=== PATIENT | female | born 1960 | race Caucasian/White ===

== ENCOUNTER 2016-11-18 07:27 | Day surgery (SDC) | payer OTHER ==
[2016-11-16 09:24] VITALS: BMI 25.4
[~2016-11-18 07:27] MED LIST: LACTATED RINGERS 1,000 ML IV SCH
[2016-11-18 07:51] VITALS: TEMP 98.9
[2016-11-18] MEDS ORDERED: LIDOCAINE 1% 20 ML VIAL (10MG/ML) FOR IV START INTRADERMA ONE (07:51)
[2016-11-18] MEDS ORDERED: PROPOFOL 10 MG/ML 20 ML VIAL IV ONE (08:03)
--- NOTE | 2016-11-18 08:25 | P.OP ---
Date of Procedure: 11/18/16 Preoperative Diagnosis: Screening for colon cancer Postoperative Diagnosis: Diverticulosis of the large intestine without perforation or bleeding. Procedure(s) Performed: Colonoscopy Anesthesia: GETA Pathology: none sent Condition: stable Disposition: PACU Description of Procedure: The patient was brought to the endoscopy suite and placed in lateral decubitus position. IV sedation was given as per anesthesia team. A timeout was performed to verify correct patient and correct procedure.Perianal examination did not reveal any external hemorrhoids but small franc-anal skin tags. Digital rectal examination was performed. A well- lubricated endoscope was passed per rectally and was gradually advanced beyond the sigmoid colon, splenic flexure, transverse colon, hepatic flexure and cecum. The ileocecal valve was visualized. Then extensive diverticulosis noted without any evidence of diverticulitis. Scope was gradually withdrawn inspecting all the mucosal surfaces. Bowel prep was fair. No other polyps or masses noted. Retroflexed in the rectum and internal hemorrhoid was noted which was not bleeding at this time. The scope was gradually withdrawn. Patient tolerated the procedure well and was taken to post anesthesia care unit in stable condition. Recommend repeat colonoscopy in 5 years Plan - Discharge Summary Discharge Medication List Acyclovir 400 mg PO BID 04/29/15 [History] Ergocalciferol [Vitamin D2] 50,000 unit PO SA 04/29/15 [History] Folic Acid 1 mg PO DAILY 04/29/15 [History] Magnesium Oxide [Mag-Ox] 400 mg PO BID 04/29/15 [History] Omeprazole [PriLOSEC] 20 mg PO AC-BID 04/29/15 [History] Sulfamethoxazole/Trimethoprim [Bactrim SS 400-80 mg] 1 each PO DAILY 04/29/15 [ History] Tacrolimus [Prograf] 1.5 mg PO BID 04/29/15 [History] Ursodiol 300 mg PO BID 04/29/15 [History] cycloSPORINE 0.05% OPHTH SOLN [Restasis] 1 applicator BOTH EYES Q12H 04/29/15 [ History] oxyCODONE HCL [Roxicodone] 5 mg PO Q4HR PRN 04/29/15 [History] predniSONE 7.5 mg PO DAILY 04/29/15 [History] rOPINIRole HCL [Requip] 0.5 mg PO HS PRN 04/29/15 [History]
[2016-11-18 08:58] VITALS: BP 102/61; PULSE 79; RESP 18
== END 2016-11-18 09:10 | disposition home or self-care (01) ==
LOC: ORWHC2ENDO 07:27
PROVIDERS: ATTEND Surgery
DX: Z12.11 Encounter for screening for malignant neoplasm of colon (principal); K57.30 Diverticulosis of large intestine without perforation or abscess without bleeding; K64.4 Residual hemorrhoidal skin tags; K21.9 Gastro-esophageal reflux disease without esophagitis; E78.5 Hyperlipidemia, unspecified; K64.8 Other hemorrhoids; Z79.899 Other long term (current) drug therapy; Z79.52 Long term (current) use of systemic steroids; Z87.891 Personal history of nicotine dependence; Z79.2 Long term (current) use of antibiotics
CPT/HCPCS: J2704; G0121

== ENCOUNTER → 2017-10-13 | Outpatient (CLI) | payer OTHER ==
--- NOTE | 2017-10-13 16:30 | BD ---
EXAMINATION TYPE: MG DEXA axial skeleton. DATE OF EXAM: 10/13/2017 COMPARISON: NONE CLINICAL HISTORY: 57-year-old female postmenopausal screening Height: 62 Weight: 146.8 FRAX RISK QUESTIONS: Alcohol (3 or more units per day): no Family History (Parent hip fracture): no Glucocorticoids (More than 3mos): yes (Ex: prednisone, prednisolone, methylprednisolone, dexamethasone, and hydrocortisone). History of Fracture in Adulthood: yes Secondary Osteoporosis: 1. Type 1 Diabetes: no 2. Hyperthyroidism: no 3. Menopause before 45: no 4. Malnutrition: no 5. Chronic liver disease: no Rheumatoid Arthritis: no Current Tobacco Use: no RISK FACTORS HISTORY OF: Family History of Osteoporosis: no Active: yes Diet low in dairy products/other sources of calcium: no Postmenopausal woman: age 51 Lost more than 2 inches in height since high school: no Frequent falls: no Adrenal Insufficiency: no MEDICATIONS: acyclovir, omeprazole Prednisone or other steroids: yes How Lon years Additional History: pt has had lymphoma EXAM MEASUREMENTS: Bone mineral densitometry was performed using the [employer] System. Bone mineral density as measured about the Lumbar spine is: ----- L1-L4(G/cm2): 1.014 T Score Values are as follows: ----- L2: -1.9 ----- L3: -1.4 ----- L4: -1.0 ----- L1-L4: -1.4 Bone mineral density baseline Bone mineral density about the R hip (g/cm2): 0.682 Bone mineral density about the L hip (g/cm2): 0.716 T Score values are as follows: -----R Neck: -2.6 -----L Neck: -2.3 -----R Total: -2.1 -----L Total: -2.1 Bone mineral density baseline IMPRESSION: Osteoporosis (T Score less than -2.5). There is increased fracture risk and therapy is usually indicated based on age. Re-Screen 1-2 years. NOTE: T-SCORE=SD OF THE YOUNG ADULT MEAN.
== END | disposition home or self-care (01) ==
LOC: RADBDWWP 14:37
PROVIDERS: ATTEND Family Medicine
DX: M81.0 Age-related osteoporosis without current pathological fracture (principal); Z78.0 Asymptomatic menopausal state
CPT/HCPCS: 77080

== ENCOUNTER → 2018-02-14 | Outpatient (CLI) | payer OTHER ==
--- NOTE | 2018-02-14 16:10 | XR ---
EXAMINATION TYPE: XR chest 2V DATE OF EXAM: 02/14/2018 COMPARISON: 10/31/2013 HISTORY: 57-year-old female wheezing, chest discomfort, shortness of breath TECHNIQUE: PA and lateral views FINDINGS: Heart normal size. Aorta within normal limits. Pulmonary vasculature within normal limits. Patchy mul tifocal opacities are present, some of which have a strandy appearance suggesting scarring. Others ar e more focal airspace opacities. Possible trace effusions. Further contrast enhanced CT evaluation re commended. IMPRESSION: Multifocal interstitial and patchy infiltrates. Interstitial pneumonitis and infection including atyp ical pneumonias are in the differential. Possible trace effusions. Further contrast enhanced CT evalu ation recommended.
== END | disposition home or self-care (01) ==
LOC: RADXRMAIN 14:44
PROVIDERS: ATTEND Family Medicine
DX: R91.8 Other nonspecific abnormal finding of lung field (principal)
CPT/HCPCS: 71046

== ENCOUNTER → 2018-03-01 | Outpatient (CLI) | payer OTHER ==
--- NOTE | 2018-03-01 08:09 | CT ---
EXAMINATION TYPE: CT chest w con DATE OF EXAM: 03/01/2018 COMPARISON: 12/06/2012 HISTORY: Ventilator associated pneumonia CT DLP: 406 mGycm Automated exposure control for dose reduction was used. CONTRAST: CT scan of the chest is performed with IV Contrast, patient injected with 100 mL of Isovue 300. FINDINGS: LUNGS: Multifocal coarse groundglass infiltrates are seen throughout both lung russo which are nonsp ecific and may reflect acute inflammatory process. No evidence for distinct pulmonary nodule or mass. No pleural effusion identified. No evidence of volume loss. MEDIASTINUM: Left paratracheal lymph nodes measure 1.1 cm and up to 8 mm. No hilar adenopathy is appr eciated. Thoracic aorta is of normal caliber. The heart is not enlarged. UPPER ABDOMEN: Partially imaged left-sided renal cystic change. OTHER: No additional significant abnormality is seen. IMPRESSION: 1. Nonspecific Multifocal coarse groundglass infiltrates suspicious for multifocal pneumonia. Correla te clinically and progress studies are recommended.
== END | disposition home or self-care (01) ==
LOC: RADCTMAIN 06:02
PROVIDERS: ATTEND Family Medicine
DX: R91.8 Other nonspecific abnormal finding of lung field (principal)
CPT/HCPCS: 82565; 84520; 71260; 36415; Q9967

== ENCOUNTER 2018-03-06 13:17 | Inpatient (IN) | payer OTHER ==
[2018-03-06] MEDS ORDERED: IPRATROPIUM-ALBUTEROL 3 ML NEB INHALATION STA (14:07)
[2018-03-06 14:26] LABS: Basophils % (A) 0 %; Eosinophils # (A) 0.3 k/uL (0-0.7); Eosinophils % (A) 2 %; HCT 35.8 % (34.0-46.0); HGB 11.3 gm/dL (11.4-16.0); Hypochromasia Slight; Lymphocytes # (A) 3.9 k/uL (1.0-4.8); Lymphocytes % (A) 19 %; MCH 27.9 pg (25.0-35.0); MCHC 31.5 g/dL (31.0-37.0); MCV 88.7 fL (80.0-100.0); Monocytes # (A) 1.1 k/uL (0-1.0); Monocytes % (A) 6 %; Neutrophils # (A) 14.8 k/uL (1.3-7.7); Neutrophils % (A) 73 %; Platelet Count 580 k/uL (150-450); RBC 4.03 m/uL (3.80-5.40); RDW 14.6 % (11.5-15.5); WBC 20.4 k/uL (3.8-10.6)
[2018-03-06 14:33] LABS: Partial Thromboplastin Time 22.2 sec (22.0-30.0); Prothrombin Time 9.8 sec (9.0-12.0)
--- NOTE | 2018-03-06 14:41 | XR ---
EXAMINATION TYPE: XR chest 2V DATE OF EXAM: 03/06/2018 COMPARISON: 02/14/2018 HISTORY: 57-year-old male difficulty breathing, cough and shortness of breath TECHNIQUE: PA and lateral views FINDINGS: Heart normal size. Aorta within normal limits. Increasing multifocal patchy airspace opacities. No si gnificant pleural effusion. IMPRESSION: Increasing multifocal patchy airspace disease. Some differential considerations include multifocal pn eumonia, interstitial pneumonitis, and hypersensitivity pneumonitis/drug reaction. Clinically correla te.
[2018-03-06 14:42] LABS: ALT 30 U/L (9-52); AST 38 U/L (14-36); Albumin 3.1 g/dL (3.5-5.0); Alkaline Phosphatase 46 U/L (38-126); Anion Gap 8 mmol/L; Blood Urea Nitrogen 17 mg/dL (7-17); Carbon Dioxide 23 mmol/L (22-30); Chloride 107 mmol/L (98-107); Glucose 105 mg/dL (74-99); Potassium 4.2 mmol/L (3.5-5.1); Sodium 138 mmol/L (137-145); Total Bilirubin 0.4 mg/dL (0.2-1.3); Total Protein 6.5 g/dL (6.3-8.2)
--- NOTE | 2018-03-06 14:58 | ED ---
SOB HPI - General Source: patient, RN notes reviewed Mode of arrival: ambulatory Limitations: no limitations <Joey Perez - Last Filed: 03/06/18 15:06> <Carrie Pope - Last Filed: 03/13/18 22:18> - General Chief Complaint: Shortness of Breath Stated Complaint: pneumonia-not getting better Time Seen by Provider: 03/06/18 13:45 - History of Present Illness Initial Comments: This a 57-year-old female presents emergency Department chief complaint of cough congestion, shortness breath. She states that she's been sick for approximately one month. She states initially saw PCP who placed her on Levaquin 750 mg for 10 days. She states that she had no improvement in which she had a CAT scan performed 5 days ago. Patient follow-up because a worsening symptoms she also was started on steroids. Patient states that she continues to have worsening shortness of breath and denies does not feel well. She has been treated for lymphoma in the past. She was on chronic antifungal treatment. 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 Patient states that she feels very fatigued and has no energy. Patient reports no night sweats she has had intermittent fevers. (Joey Perez) - Related Data Home Medications Medication Instructions Recorded Confirmed Acyclovir 400 mg PO BID 04/29/15 03/06/18 Omeprazole [PriLOSEC] 20 mg PO AC-BID 04/29/15 03/06/18 Ursodiol 300 mg PO BID 04/29/15 03/06/18 ALPRAZolam [Xanax] 0.5 mg PO DAILY PRN 03/06/18 03/06/18 Albuterol Nebulized [Ventolin 2.5 mg INHALATION RT-BID 03/06/18 03/06/18 Nebulized] Alendronate Sodium [Fosamax] 70 mg PO MO 03/06/18 03/06/18 Ergocalciferol [Vitamin D2] 1,000 unit PO QAM 03/06/18 03/06/18 predniSONE See Taper PO DAILY 03/06/18 03/06/18 rOPINIRole HCL [Requip] 1 mg PO HS 03/06/18 03/06/18 Allergies Allergy/AdvReac Type Severity Reaction Status Date / Time No Known Allergies Allergy Verified 03/06/18 16:21 Review of Systems ROS Other: All systems not noted in ROS Statement are negative. <Joey Perez Ana - Last Filed: 03/06/18 15:06> ROS Other: All systems not noted in ROS Statement are negative. <Cresencio Popesspascual Alba - Last Filed: 03/13/18 22:18> ROS Statement: Those systems with pertinent positive or pertinent negative responses have been documented in the HPI. Past Medical History Past Medical History: Cancer, GERD/Reflux, Hyperlipidemia Additional Past Medical History / Comment(s): T-CELL CA, RESTLESS LEG, HX POLYP , HX OF CHEMO History of Any Multi-Drug Resistant Organisms: None Reported Additional Past Surgical History / Comment(s): REMOVAL RT CERVICAL LYMPH NODE FOR BX, BONE MARROW TX X2. HAD PORT A CATH, CENTRAL LINE, PICC LINE ALL REMOVED Past Anesthesia/Blood Transfusion Reactions: No Reported Reaction Past Psychological History: No Psychological Hx Reported Smoking Status: Former smoker Past Alcohol Use History: None Reported Past Drug Use History: None Reported - Past Family History Father Family Medical History: Deep Vein Thrombosis (DVT) Mother Family Medical History: Cancer <Joey Perez - Last Filed: 03/06/18 15:06> General Exam Limitations: no limitations General appearance: alert, in no apparent distress Head exam: Present: atraumatic, normocephalic, normal inspection Eye exam: Present: normal appearance, PERRL, EOMI. Absent: scleral icterus, conjunctival injection, periorbital swelling ENT exam: Present: normal exam, normal oropharynx, mucous membranes moist, TM's normal bilaterally, normal external ear exam Neck exam: Present: normal inspection, full ROM. Absent: tenderness, meningismus, lymphadenopathy Respiratory exam: Present: wheezes, rhonchi. Absent: normal lung sounds bilaterally, respiratory distress, rales, stridor Cardiovascular Exam: Present: regular rate, normal rhythm, normal heart sounds. Absent: systolic murmur, diastolic murmur, rubs, gallop, clicks Neurological exam: Present: alert, oriented X3, CN II-XII intact Skin exam: Present: warm, dry, intact, normal color. Absent: rash <Joey Perez - Last Filed: 03/06/18 15:06> Vital Signs 03/06/18 03/06/18 03/06/18 13:20 14:59 15:00 Temperature 97.9 F Pulse Rate 87 80 82 Pulse Rate [ Pulse Oximetery ] Respiratory 20 22 Rate Blood Pressure 136/79 113/66 Blood Pressure [Left Arm] O2 Sat by Pulse 94 L 98 Oximetry 03/06/18 03/06/18 03/06/18 15:08 15:39 16:00 Temperature 98.1 F 98.9 F Pulse Rate 92 89 Pulse Rate [ 76 Pulse Oximetery ] Respiratory 18 20 Rate Blood Pressure 109/65 Blood Pressure 112/74 [Left Arm] O2 Sat by Pulse 90 L 95 Oximetry Medical Decision Making - Lab Data Result diagrams: 03/06/18 13:54 03/06/18 13:54 <Joey Perez - Last Filed: 03/06/18 15:06> - Lab Data Result diagrams: 03/10/18 06:15 03/12/18 10:33 <Carrie Pope - Last Filed: 03/13/18 22:18> - Medical Decision Making 57-year-old female presented for dyspnea, pneumonia recent outpatient. Patient has failed outpatient treatment. Patient we started on multiple antibiotics including Levaquin, Zosyn and vancomycin (Joey Perez) I personally saw and Evaluated Patient. Patient with Pneumonia Which Is Failed Outpatient Therapy. We'll Plan to Admit. Patient Care Was Discussed with the Admitting Physician and Admission Orders Were Placed. (Carrie Pope) - Lab Data Lab Results 03/06/18 03/06/18 03/06/18 Range/Units 13:54 13:54 13:54 WBC 20.4 H (3.8-10.6) k/uL RBC 4.03 (3.80-5.40) m/uL Hgb 11.3 L (11.4-16.0) gm/dL Hct 35.8 (34.0-46.0) % MCV 88.7 (80.0-100.0) fL MCH 27.9 (25.0-35.0) pg MCHC 31.5 (31.0-37.0) g/dL RDW 14.6 (11.5-15.5) % Plt Count 580 H (150-450) k/uL Neutrophils % 73 % Lymphocytes % 19 % Monocytes % 6 % Eosinophils % 2 % Basophils % 0 % Neutrophils # 14.8 H (1.3-7.7) k/uL Lymphocytes # 3.9 (1.0-4.8) k/uL Monocytes # 1.1 H (0-1.0) k/uL Eosinophils # 0.3 (0-0.7) k/uL Basophils # 0.0 (0-0.2) k/uL Hypochromasia Slight PT 9.8 (9.0-12.0) sec INR 1.0 (<1.2) APTT 22.2 (22.0-30.0) sec Sodium 138 (137-145) mmol/L Potassium 4.2 (3.5-5.1) mmol/L Chloride 107 (98-107) mmol/L Carbon Dioxide 23 (22-30) mmol/L Anion Gap 8 mmol/L BUN 17 (7-17) mg/dL Creatinine 0.75 (0.52-1.04) mg/dL Est GFR (CKD-EPI)AfAm >90 (>60 ml/min/1.73 sqM) Est GFR (CKD-EPI)NonAf 88 (>60 ml/min/1.73 sqM) Glucose 105 H (74-99) mg/dL Plasma Lactic Acid Matheus (0.7-2.0) mmol/L Calcium 9.0 (8.4-10.2) mg/dL Magnesium 2.0 (1.6-2.3) mg/dL Total Bilirubin 0.4 (0.2-1.3) mg/dL AST 38 H (14-36) U/L ALT 30 (9-52) U/L Alkaline Phosphatase 46 (38-126) U/L Total Protein 6.5 (6.3-8.2) g/dL Albumin 3.1 L (3.5-5.0) g/dL 03/06/18 Range/Units 15:25 WBC (3.8-10.6) k/uL RBC (3.80-5.40) m/uL Hgb (11.4-16.0) gm/dL Hct (34.0-46.0) % MCV (80.0-100.0) fL MCH (25.0-35.0) pg MCHC (31.0-37.0) g/dL RDW (11.5-15.5) % Plt Count (150-450) k/uL Neutrophils % % Lymphocytes % % Monocytes % % Eosinophils % % Basophils % % Neutrophils # (1.3-7.7) k/uL Lymphocytes # (1.0-4.8) k/uL Monocytes # (0-1.0) k/uL Eosinophils # (0-0.7) k/uL Basophils # (0-0.2) k/uL Hypochromasia PT (9.0-12.0) sec INR (<1.2) APTT (22.0-30.0) sec Sodium (137-145) mmol/L Potassium (3.5-5.1) mmol/L Chloride (98-107) mmol/L Carbon Dioxide (22-30) mmol/L Anion Gap mmol/L BUN (7-17) mg/dL Creatinine (0.52-1.04) mg/dL Est GFR (CKD-EPI)AfAm (>60 ml/min/1.73 sqM) Est GFR (CKD-EPI)NonAf (>60 ml/min/1.73 sqM) Glucose (74-99) mg/dL Plasma Lactic Acid Matheus 1.4 (0.7-2.0) mmol/L Calcium (8.4-10.2) mg/dL Magnesium (1.6-2.3) mg/dL Total Bilirubin (0.2-1.3) mg/dL AST (14-36) U/L ALT (9-52) U/L Alkaline Phosphatase (38-126) U/L Total Protein (6.3-8.2) g/dL Albumin (3.5-5.0) g/dL 03/06/18 14:57 EKG performed at 14:42 normal sinus rhythm with rate of 81. 174 QRS 84 QT/QTC 378/439 (Joey Perez) Disposition <Joey Perez - Last Filed: 03/06/18 15:06> <Carrie Pope - Last Filed: 03/13/18 22:18> Clinical Impression: Multifocal pneumonia, Dyspnea, Leukocytosis Disposition: ADMITTED IP TO THIS HOSP Condition: Fair
[2018-03-06] MEDS ORDERED: PIPERACILLIN-TAZOBACTAM 3.375 GM in DEXTROSE/WATER 1 50ML.BAG IVPB STA (15:05)
[2018-03-06] MEDS ORDERED: LEVOFLOXACIN 750MG-D5W PMX 750 MG in DEXTROSE/WATER 1 150ML.BAG IVPB STA (15:05)
[2018-03-06] MEDS ORDERED: VANCOMYCIN IV PER PHARMACY 1 EACH MISC MISCELLANE PRN (15:06)
[2018-03-06] MEDS ORDERED: ALBUTEROL NEBULIZED 2.5 MG/3 ML INHALATION PRN (15:08)
[2018-03-06] MEDS ORDERED: PNEUMONIA PROTOCOL UTILIZED 1 EACH MISC PO PRN (15:08)
[2018-03-06] MEDS ORDERED: VANCOMYCIN 1,500 MG in SODIUM CHLORIDE 0.9% 250 ML IVPB STA (15:18)
[2018-03-06 16:42] VITALS: BMI 26.5
[2018-03-06] MEDS: IPRATROPIUM-ALBUTEROL 3 ML NEB INHALATION SCH ×2 (19:03)
[2018-03-06] MEDS ORDERED: ALPRAZolam 0.5 MG TAB PO PRN (21:42)
[2018-03-06] MEDS ORDERED: ACETAMINOPHEN TAB 325 MG TAB PO PRN (21:43)
[2018-03-06] MEDS ORDERED: MELATONIN 3 MG TABLET PO PRN (21:43)
[2018-03-06] MEDS ORDERED: MAGNESIUM HYDROXIDE 2,400 MG/10 ML CUP PO PRN (21:43)
[2018-03-06] MEDS ORDERED: LACTULOSE 20 GM/30 ML CUP PO PRN (21:43)
[2018-03-06] MEDS ORDERED: CALCIUM CARBONATE 500 MG CHEWABLE PO PRN (21:43)
[2018-03-06] MEDS: ACYCLOVIR 200 MG CAP PO SCH (22:02)
[2018-03-06] MEDS: URSODIOL 300 MG CAP PO SCH (22:03)
[2018-03-06] MEDS: PANTOPRAZOLE 40 MG TABLET PO SCH (22:03)
[2018-03-06] MEDS: LACTATED RINGERS 1,000 ML IV SCH (22:03)
[2018-03-07] MEDS: PIPERACILLIN-TAZOBACTAM 3.375 GM in DEXTROSE/WATER 1 50ML.BAG IVPB SCH ×3 (00:01→19:20)
[2018-03-07] MEDS: ALPRAZolam 0.25 MG TAB PO PRN ×2 (00:06→21:50)
[2018-03-07] MEDS: VANCOMYCIN 1,250 MG in SODIUM CHLORIDE 0.9% 250 ML IVPB SCH ×2 (04:24→19:23)
[2018-03-07] MEDS ORDERED: ALBUTEROL NEBULIZED 2.5 MG/3 ML INHALATION SCH (08:00)
[2018-03-07] MEDS: ACYCLOVIR 200 MG CAP PO SCH ×2 (08:21→19:38)
[2018-03-07] MEDS: URSODIOL 300 MG CAP PO SCH ×2 (08:22→19:38)
[2018-03-07] MEDS: PANTOPRAZOLE 40 MG TABLET PO SCH ×2 (08:22→17:52)
[2018-03-07] MEDS: LACTATED RINGERS 1,000 ML IV SCH ×2 (08:23→14:04)
[2018-03-07] MEDS: IPRATROPIUM-ALBUTEROL 3 ML NEB INHALATION SCH ×5 (09:19→19:37)
--- NOTE | 2018-03-07 10:07 | P.CONS ---
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 She states that she has been stable and has been taken off all of her medications. Patient states that about one month ago she started having cough and shortness of breath that gradually worsened. She had an appointment with her primary care doctor and had a chest x-ray and was subsequently placed on Levaquin for 10 days. She did contact her physicians at [facility] who requested a CAT scan be done. On March 01, chest CAT scan with contrast showed nonspecific multifocal coarse ground glass infiltrates suspicious for multifocal pneumonia. Correlate clinically and progress studies are recommended. She was then placed on oral prednisone by her PCP and [facility] placed her on acyclovir. Unfortunately, she continued to worsen with increasing shortness of breath and cough. She states her cough has been nonproductive. She came into [facility] emergency center. She was found to have a white count of 20.5, lactic acid was 1.4, platelet count 580, BUN 17 creatinine 0.75. AST 38 and albumin 3.1. Blood culture is status post receive and sputum cultures uncollected. Chest x-ray showed increased multifocal patchy airspace disease. Differential includes multifocal pneumonia, interstitial pneumonitis, hypersensitivity pneumonitis or drug reaction. Patient had a repeat chest x-ray done this morning and report is pending. Patient was resumed on acyclovir orally, started on Levaquin, Zosyn and vancomycin and admitted to the pediatric unit. Patient is also followed by Dr. Serrano. Patient states that she is a little bit better since admission. Her appetite is improved. Her cough remains nonproductive. She does state she had a mild fever for a couple of days last week but none at this time. Review of Systems All systems: negative Constitutional: Reports fatigue, Reports malaise, Denies chills, Denies fever Eyes: denies blurred vision, denies pain Ears, nose, mouth and throat: Denies dental pain, Denies dysphagia, Denies headache, Denies mouth pain, Denies sore throat, Denies vertigo Cardiovascular: Reports dyspnea on exertion, Denies chest pain, Denies edema, Denies leg edema, Denies lightheadedness, Denies shortness of breath, Denies syncope Respiratory: Reports cough, Reports dyspnea, Denies cough with sputum, Denies excessive sputum, Denies hemoptysis, Denies home oxygen, Denies wheezing Gastrointestinal: Denies abdominal pain, Denies diarrhea, Denies nausea, Denies vomiting Genitourinary: Denies dysuria, Denies hematuria, Denies urgency, Denies urinary frequency Musculoskeletal: Denies myalgias Integumentary: Denies pruritus, Denies rash Neurological: Denies numbness, Denies weakness Psychiatric: Denies anxiety, Denies depression Endocrine: Denies fatigue, Denies weight change Past Medical History Past Medical History: Cancer, GERD/Reflux, Hyperlipidemia Additional Past Medical History / Comment(s): T-CELL CA, RESTLESS LEG, HX POLYP , HX OF CHEMO History of Any Multi-Drug Resistant Organisms: None Reported Additional Past Surgical History / Comment(s): REMOVAL RT CERVICAL LYMPH NODE FOR BX, BONE MARROW TX X2. HAD PORT A CATH, CENTRAL LINE, PICC LINE ALL REMOVED Past Anesthesia/Blood Transfusion Reactions: No Reported Reaction Past Psychological History: Anxiety Smoking Status: Former smoker Past Alcohol Use History: None Reported Additional Past Alcohol Use History / Comment(s): Patient was a smoker of a pack per day for 36 years and quit in 2013 when diagnosed with cancer. She denies any marijuana, medical marijuana, street drug or alcohol use. She lives at home with her . They own [employer]. They've recently purchased land in [place] [place]. There is a dog in the home. No recent travel. No unusual animal exposures. Past Drug Use History: None Reported - Past Family History Father Family Medical History: Deep Vein Thrombosis (DVT) Mother Family Medical History: Congestive Heart Failure (CHF), Coronary Artery Disease (CAD) Medications and Allergies Home Medications Medication Instructions Recorded Confirmed Type Acyclovir 400 mg PO BID 04/29/15 03/06/18 History Omeprazole [PriLOSEC] 20 mg PO AC-BID 04/29/15 03/06/18 History Ursodiol 300 mg PO BID 04/29/15 03/06/18 History ALPRAZolam [Xanax] 0.5 mg PO DAILY PRN 03/06/18 03/06/18 History Albuterol Nebulized [Ventolin 2.5 mg INHALATION RT-BID 03/06/18 03/06/18 History Nebulized] Alendronate Sodium [Fosamax] 70 mg PO MO 03/06/18 03/06/18 History Ergocalciferol [Vitamin D2] 1,000 unit PO QAM 03/06/18 03/06/18 History predniSONE See Taper PO DAILY 03/06/18 03/06/18 History rOPINIRole HCL [Requip] 1 mg PO HS 03/06/18 03/06/18 History Allergies Allergy/AdvReac Type Severity Reaction Status Date / Time No Known Allergies Allergy Verified 03/06/18 16:21 Physical Exam Vitals: Vital Signs Temp Pulse Pulse Resp BP BP BP 03/07/18 09:20 88 03/07/18 08:15 97.8 F 71 19 103/68 03/07/18 00:00 97.7 F 80 20 105/69 03/06/18 20:08 97.9 F 87 32 H 115/77 03/06/18 19:14 90 03/06/18 19:03 90 03/06/18 16:00 98.9 F 89 20 109/65 03/06/18 15:39 98.1 F 76 18 112/74 03/06/18 15:08 92 03/06/18 15:00 82 22 113/66 03/06/18 14:59 80 03/06/18 13:20 97.9 F 87 20 136/79 Pulse Ox 03/07/18 09:20 03/07/18 08:15 94 L 03/07/18 00:00 90 L 03/06/18 20:08 91 L 03/06/18 19:14 03/06/18 19:03 03/06/18 16:00 95 03/06/18 15:39 90 L 03/06/18 15:08 03/06/18 15:00 98 03/06/18 14:59 03/06/18 13:20 94 L Intake and Output 03/06/18 03/07/18 03/07/18 22:59 06:59 14:59 Other: # Voids 1 Weight 65.771 kg Gen: This is a 57-year-old female. She is sitting up in bed and appears to be comfortable. No apparent distress noted. HEENT: Head is atraumatic, normocephalic. Pupils equal, round. Sclerae is anicteric. Conjunctiva pink. Mucous members of the mouth are moist. No lesions or thrush noted. Dentition is in good order. NECK: Supple. No JVD. No lymphadenopathy. No thyromegaly. LUNGS: Scattered rhonchi throughout bilateral. No intercostal retractions. HEART: Regular rate and rhythm. No murmur. ABDOMEN: Soft. Bowel sounds are present. No masses. No tenderness. EXTREMITIES: Trace bilateral pedal edema. No calf tenderness. Dorsalis pedis + 2 bilaterally. NEUROLOGICAL: Patient is awake, alert and oriented x3. Cranial nerves 2 through 12 are grossly intact. Results Results: Laboratory Results WBC 20.4 k/uL (3.8-10.6) H 03/06/18 13:54 RBC 4.03 m/uL (3.80-5.40) 03/06/18 13:54 Hgb 11.3 gm/dL (11.4-16.0) L 03/06/18 13:54 Hct 35.8 % (34.0-46.0) 03/06/18 13:54 MCV 88.7 fL (80.0-100.0) 03/06/18 13:54 MCH 27.9 pg (25.0-35.0) 03/06/18 13:54 MCHC 31.5 g/dL (31.0-37.0) 03/06/18 13:54 RDW 14.6 % (11.5-15.5) 03/06/18 13:54 Plt Count 580 k/uL (150-450) H 03/06/18 13:54 Neutrophils % 73 % 03/06/18 13:54 Lymphocytes % 19 % 03/06/18 13:54 Monocytes % 6 % 03/06/18 13:54 Eosinophils % 2 % 03/06/18 13:54 Basophils % 0 % 03/06/18 13:54 Neutrophils # 14.8 k/uL (1.3-7.7) H 03/06/18 13:54 Lymphocytes # 3.9 k/uL (1.0-4.8) 03/06/18 13:54 Monocytes # 1.1 k/uL (0-1.0) H 03/06/18 13:54 Eosinophils # 0.3 k/uL (0-0.7) 03/06/18 13:54 Basophils # 0.0 k/uL (0-0.2) 03/06/18 13:54 Hypochromasia Slight 03/06/18 13:54 PT 9.8 sec (9.0-12.0) 03/06/18 13:54 INR 1.0 (<1.2) 03/06/18 13:54 APTT 22.2 sec (22.0-30.0) 03/06/18 13:54 Sodium 138 mmol/L (137-145) 03/06/18 13:54 Potassium 4.2 mmol/L (3.5-5.1) 03/06/18 13:54 Chloride 107 mmol/L (98-107) 03/06/18 13:54 Carbon Dioxide 23 mmol/L (22-30) 03/06/18 13:54 Anion Gap 8 mmol/L 03/06/18 13:54 BUN 17 mg/dL (7-17) 03/06/18 13:54 Creatinine 0.75 mg/dL (0.52-1.04) 03/06/18 13:54 Est GFR (CKD-EPI)AfAm >90 (>60 ml/min/1.73 sqM) 03/06/18 13:54 Est GFR (CKD-EPI)NonAf 88 (>60 ml/min/1.73 sqM) 03/06/18 13:54 Glucose 105 mg/dL (74-99) H 03/06/18 13:54 Plasma Lactic Acid Matheus 1.4 mmol/L (0.7-2.0) 03/06/18 15:25 Calcium 9.0 mg/dL (8.4-10.2) 03/06/18 13:54 Magnesium 2.0 mg/dL (1.6-2.3) 03/06/18 13:54 Total Bilirubin 0.4 mg/dL (0.2-1.3) 03/06/18 13:54 AST 38 U/L (14-36) H 03/06/18 13:54 ALT 30 U/L (9-52) 03/06/18 13:54 Alkaline Phosphatase 46 U/L (38-126) 03/06/18 13:54 Total Protein 6.5 g/dL (6.3-8.2) 03/06/18 13:54 Albumin 3.1 g/dL (3.5-5.0) L 03/06/18 13:54 CBC & Chem 7: 03/06/18 13:54 03/06/18 13:54 Labs: Abnormal Lab Results - Last 24 Hours (Table) 03/06/18 03/06/18 Range/Units 13:54 13:54 WBC 20.4 H (3.8-10.6) k/uL Hgb 11.3 L (11.4-16.0) gm/dL Plt Count 580 H (150-450) k/uL Neutrophils # 14.8 H (1.3-7.7) k/uL Monocytes # 1.1 H (0-1.0) k/uL Glucose 105 H (74-99) mg/dL AST 38 H (14-36) U/L Albumin 3.1 L (3.5-5.0) g/dL Assessment and Plan Plan: This is a 57-year-old female who presents to the hospital with multifocal patchy pneumonia with underlying history of T-cell lymphoma followed by the [facility]. She is currently on Levaquin, Zosyn, vancomycin and acyclovir. Intravenous trimethoprim sulfamethoxazole is requested, and with this the vancomycin may be discontinued. Pulmonary medicine is following the patient and patient may require bronchoscopy if no improvement in the next day or 2. Blood cultures status received in sputum culture is on collected at this time. Continue supportive care. Further recommendations as patient progresses. The above dictated assessment and findings were discussed with Dr. Crawford. The impression and plan of care have been directed as dictated. Kathya Mustafa nurse practitioner acting as scribe for Dr. Crawford.
--- NOTE | 2018-03-07 10:16 | P.CNPUL ---
History of Present Illness Consult date: 03/07/18 Requesting physician: Jason Jon Reason for consult: dyspnea, abnormal CXR/CT Chief complaint: Shortness of breath, cough, congestion History of present illness: This is a very pleasant 57-year-old female patient who follows with Dr. Bauer as her primary care physician. She has a history of non-Hodgkin's lymphoma diagnosed in the neck region in November 2013. She completed chemotherapy in March 2014. She has also undergone bone marrow transplant 2. She has been followed at the [facility]. She states she has been in remission since that time. Her last PET scan done in this facility March 2014 showed no hypermetabolic uptake. She also states she had been on antifungals and prednisone until approximately November of this year. Approximately one month ago she developed shortness of breath, cough and congestion. She was seen by her PCP and placed on Levaquin 750 mg for 10 days. She had no real improvement and in follow-up was started on steroids. She continued to have significant cough and congestion. Chest x-ray revealed abnormalities and she had an outpatient CAT scan done on 2017. There was noted nonspecific multifocal coarse groundglass infiltrate suspicious for multifocal pneumonia. She did not hear back on these results. Her symptoms continued to worsen and she presented here to the emergency room yesterday for the same. Chest x-ray showed increasing multifocal patchy airspace disease. White count 20.4. Lactic 1.4. She's been initiated on vancomycin, Zosyn and Levaquin along with bronchodilators. She is seen today in consultation on the pediatric unit. She is awake and alert in no acute distress. She's been breathing slightly better today as compared to yesterday. He is maintaining O2 saturations in the low 90s on 2 L/m per nasal cannula. She's been afebrile. Hemodynamically stable. She has a loose nonproductive cough. Review of Systems Constitutional: Reports fatigue, Reports weakness Eyes: denies blurred vision, denies decreased vision Ears: deny: decreased hearing Ears, nose, mouth and throat: Denies headache, Denies sore throat Cardiovascular: Reports shortness of breath Respiratory: Reports congestion, Reports cough, Reports dyspnea Gastrointestinal: Denies abdominal pain, Denies diarrhea, Denies nausea, Denies vomiting Genitourinary: Denies dysuria, Denies hematuria Musculoskeletal: Denies myalgias Integumentary: Denies pruritus, Denies rash Neurological: Denies numbness, Denies weakness Psychiatric: Denies anxiety, Denies depression Endocrine: Denies fatigue, Denies weight change Hematologic/Lymphatic: Reports as per HPI Allergic/Immunologic: Reports as per HPI Past Medical History Past Medical History: Cancer, GERD/Reflux, Hyperlipidemia Additional Past Medical History / Comment(s): Non-Hodgkin's lymphoma, status post chemotherapy and bone marrow transplant 2, History of Any Multi-Drug Resistant Organisms: None Reported Additional Past Surgical History / Comment(s): REMOVAL RT CERVICAL LYMPH NODE FOR BX, BONE MARROW TX X2. HAD PORT A CATH, CENTRAL LINE, PICC LINE ALL REMOVED Past Anesthesia/Blood Transfusion Reactions: No Reported Reaction Past Psychological History: Anxiety Smoking Status: Former smoker Past Alcohol Use History: None Reported Past Drug Use History: None Reported - Past Family History Father Family Medical History: Deep Vein Thrombosis (DVT) Mother Family Medical History: Congestive Heart Failure (CHF), Coronary Artery Disease (CAD) Medications and Allergies Home Medications Medication Instructions Recorded Confirmed Type Acyclovir 400 mg PO BID 04/29/15 03/06/18 History Omeprazole [PriLOSEC] 20 mg PO AC-BID 04/29/15 03/06/18 History Ursodiol 300 mg PO BID 04/29/15 03/06/18 History ALPRAZolam [Xanax] 0.5 mg PO DAILY PRN 03/06/18 03/06/18 History Albuterol Nebulized [Ventolin 2.5 mg INHALATION RT-BID 03/06/18 03/06/18 History Nebulized] Alendronate Sodium [Fosamax] 70 mg PO MO 03/06/18 03/06/18 History Ergocalciferol [Vitamin D2] 1,000 unit PO QAM 03/06/18 03/06/18 History predniSONE See Taper PO DAILY 03/06/18 03/06/18 History rOPINIRole HCL [Requip] 1 mg PO HS 03/06/18 03/06/18 History Allergies Allergy/AdvReac Type Severity Reaction Status Date / Time No Known Allergies Allergy Verified 03/06/18 16:21 Physical Exam Vitals: Vital Signs Temp Pulse Pulse Resp BP BP BP 03/07/18 09:20 88 03/07/18 08:15 97.8 F 71 19 103/68 08/28/18 00:00 97.7 F 80 20 105/69 03/06/18 20:08 97.9 F 87 32 H 115/77 03/06/18 19:14 90 03/06/18 19:03 90 03/06/18 16:00 98.9 F 89 20 109/65 03/06/18 15:39 98.1 F 76 18 112/74 03/06/18 15:08 92 03/06/18 15:00 82 22 113/66 03/06/18 14:59 80 03/06/18 13:20 97.9 F 87 20 136/79 Pulse Ox 03/07/18 09:20 03/07/18 08:15 94 L 03/07/18 00:00 90 L 03/06/18 20:08 91 L 03/06/18 19:14 03/06/18 19:03 03/06/18 16:00 95 03/06/18 15:39 90 L 03/06/18 15:08 03/06/18 15:00 98 03/06/18 14:59 03/06/18 13:20 94 L Intake and Output 03/06/18 03/07/18 03/07/18 22:59 06:59 14:59 Other: # Voids 1 Weight 65.771 kg - Constitutional General appearance: no acute distress - EENT Eyes: EOMI, PERRLA ENT: hearing grossly normal Ears: bilateral: normal - Neck Neck: normal ROM Carotids: bilateral: upstroke normal Thyroid: bilateral: normal size - Respiratory Respiratory: bilateral: rhonchi - Cardiovascular Rhythm: regular Heart sounds: normal: S1, S2 - Gastrointestinal General gastrointestinal: normal bowel sounds - Integumentary Integumentary: normal turgor - Neurologic Neurologic: CNII-XII intact - Musculoskeletal Musculoskeletal: gait normal - Psychiatric Psychiatric: A&O x's 3, appropriate affect, intact judgment & insight Results - Laboratory Findings CBC and BMP: 03/06/18 13:54 03/06/18 13:54 PT/INR, D-dimer PT 9.8 sec (9.0-12.0) 03/06/18 13:54 INR 1.0 (<1.2) 03/06/18 13:54 Abnormal lab findings: Abnormal Labs 03/06/18 03/06/18 13:54 13:54 WBC 20.4 H Hgb 11.3 L Plt Count 580 H Neutrophils # 14.8 H Monocytes # 1.1 H Glucose 105 H AST 38 H Albumin 3.1 L - Diagnostic Findings Chest x-ray: image reviewed CT scan - chest: image reviewed Assessment and Plan Assessment: Impression: #1 Acute hypoxic respiratory failure secondary to bilateral multifocal pneumonia , suspect community-acquired in an immunocompromised patient. #2 Leukocytosis secondary to above. #3 History of non-Hodgkin's lymphoma status post chemotherapy and bone marrow transplant 2. #4 Gastroesophageal reflux disease. Plan: The patient was seen and evaluated by Dr. Urbano. Chest x-ray, CAT scan, labs were all reviewed. Infectious disease is on the case as well. Currently on vancomycin, Zosyn and Levaquin. We'll continue with bronchodilators. We will increase her activity as tolerated. We'll continue to follow and make further recommendations based on her clinical status. I, the cosigning physician, performed a history & physical examination of the patient. Lungs sounds with bilateral scattered rhonchi. Maintaining good O2 saturations in the 90s on 2 L/m per nasal cannula. I discussed the assessment and plan of care with my nurse practitioner, Uzma Acosta. I attest to the above consultation as dictated by her. Time with Patient: Greater than 30
--- NOTE | 2018-03-07 10:19 | XR ---
EXAMINATION TYPE: XR chest 2V DATE OF EXAM: 03/07/2018 COMPARISON: 03/06/2018 INDICATION: Pneumonia TECHNIQUE: Frontal and lateral views of the chest are obtained. FINDINGS: The heart size is normal. The pulmonary vasculature is normal. Streak opacity in left upper lobe has improved from prior study. Right upper lobe infiltrate appears stable. Mild bibasilar infiltrates are increasing.. Minimal pleural effusions may be developing. IMPRESSION: 1. Bibasilar infiltrates increasing small bilateral pleural effusions developing. 2. Stable right upper lobe infiltrate likely pneumonia. 3. Some improvement of a left upper lobe infiltrate.
[2018-03-07] MEDS ORDERED: LEVOFLOXACIN 750MG-D5W PMX 750 MG in DEXTROSE/WATER 1 150ML.BAG IVPB SCH (16:00)
--- NOTE | 2018-03-07 17:14 | CT ---
EXAMINATION TYPE: CT chest wo con DATE OF EXAM: 03/07/2018 COMPARISON: 03/01/2018 HISTORY: Cough, SOB, possible pulmonary fibrosis CT DLP: 158 mGycm. Automated Exposure Control for Dose Reduction was Utilized. TECHNIQUE: CT scan of the thorax is performed without IV contrast. FINDINGS: There are extensive bilateral patchy pulmonary interstitial and airspace infiltrates. There is involv ement of all of the lung russo. There are a few mediastinal lymph nodes that measure up to [address] size is normal. There is no pericardial effusion. There is no pleural effusion. There is some rinku ycomb pattern in the upper lobes. IMPRESSION: Extensive bilateral pulmonary infiltrates appear worse than last exam of 03/01/2018 and co nsistent with acute pneumonia superimposed on interstitial fibrosis. There are a few nonspecific medi astinal stable lymph nodes.
--- NOTE | 2018-03-07 17:29 | HP ---
HISTORY AND PHYSICAL DATE OF SERVICE: 03/07/2018 PRESENTING COMPLAINT: Cough, short of breath. HISTORY OF PRESENTING COMPLAINT: This is a very pleasant 57-year-old patient of Dr. Bryce Bauer. The patient was diagnosed with non-Hodgkin's lymphoma a while ago and did receive treatment, was followed in [place]. The patient has been clear for 3 years. The patient has been on prednisone, antifungals and a liver pill that is being tapered off. The patient became short of breath about a month ago and had a slight cough. No sputum. Very low- grade fever, decreased appetite. She presented to Dr. Bauer's office. The patient was diagnosed with pneumonia and given Levaquin 750 mg a day for 10 days. The patient continues to feel the same way, tired, rundown, with a slight cough. The patient has city water and a 1-1/2-year-old puppy that has received all immunizations. Has had no recent travel. Denies any rash. The patient occasionally gets some loose stools. No obvious fever or chills, but tired and rundown. Patient has lost a little bit of weight in the last one month. REVIEW OF SYSTEMS: CONSTITUTIONAL: Loss of appetite and weight. Weak, tired, rundown. HEENT: None. RESPIRATORY: As above. CARDIOVASCULAR: None. GASTROINTESTINAL: As above. GENITOURINARY: None. MUSCULOSKELETAL: None. DERMATOLOGICAL: None. HEMATOLOGICAL: None. LYMPHATICS: None. PSYCHIATRY: None. NEUROLOGICAL: None. PAST MEDICAL HISTORY: 1. GERD. 2. Hyperlipidemia. 3. Non-Hodgkin's lymphoma, clear for 3 years, status post chemotherapy and bone marrow transplant x2. 4. cervical lymph node biopsy. 5. Bone marrow transplants x2. 6. Port-A-Cath. 7. PICC line. SOCIAL HISTORY: . Smoked a pack a day for 20 years, stopped 4 years ago. No alcohol. 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 FAMILY HISTORY: DVT. HOME MEDICATIONS: 1. Requip 1 mg at bedtime. 2. Vitamin D 2000 units p.o. daily. 3. Ventolin 2.5 b.i.d. 4. Xanax 0.5 p.o. daily p.r.n. 5. Prednisone. 6. Fosamax 70 mg p.o. . 7. Ursodiol 300 mg p.o. b.i.d. 8. Prilosec 20 mg b.i.d. 9. Acyclovir 400 mg p.o. b.i.d. ALLERGIES: NONE. PHYSICAL EXAMINATION: VITAL SIGNS ON PRESENTATION: Temperature 97.9, pulse 87, respiration 20, blood pressure 136/79, pulse ox 94% on room air. GENERAL APPEARANCE: Average build. Sitting up. Not in distress. EYES: Pupils equal. Conjunctivae normal. HEENT: External appearance of nose and ears normal. Oral cavity normal. NECK: JVD not raised. Mass not palpable. RESPIRATORY: Effort increased. LUNGS: Bilateral coarse. Crackles. CARDIOVASCULAR: First and second sounds normal. No edema. ABDOMEN: Soft, non-tender. Liver and spleen not palpable. LYMPHATIC: No lymph node palpable in neck or axillae. PSYCHIATRY: Alert and oriented x3. Mood and affect normal. NEUROLOGICAL: Pupils equal. Cranial nerves grossly intact. Power and sensation grossly intact. INVESTIGATIONS: White count 20.4, hemoglobin 11.3, platelets 580. Neutrophils 14.8. Potassium 4.2. BUN and creatinine are normal. AST 38. Chest x-ray: Scattered on both sides, infiltrates. ASSESSMENT: 1. This is a patient who is status post chemotherapy and bone marrow transplant for non-Hodgkin's lymphoma. She had been on prednisone, antifungals; immunosuppressed. Now presenting with one month of increasing shortness of breath, cough. No sputum. Maybe low-grade fever, if any. She has coarse crackles in the chest. Chest x-ray findings could either represent pulmonary fibrosis or an atypical organism. Would even consider fungal elements. We would expect patient to be more sick from the same. Patient has pulmonary fibrosis. Of course, pneumonia remains in the differential. 2. Gastroesophageal reflux disease. 3. Hyperlipidemia. 4. Leukocytosis, likely from steroids. PLAN: Consultations to Pulmonary and ID were done. Will order a high-resolution CT scan of the chest to rule out pulmonary fibrosis. Otherwise, patient will then need a bronchoscopy. If bronchoscopy is read as negative, then patient down the road may need a biopsy. Care was discussed with the patient. Questions were answered. Currently patient is empirically on antibiotics, including Levaquin, Zosyn, vancomycin. MMODL / IJN: [id number] /
[2018-03-07] MEDS: ENOXAPARIN 40 MG/0.4 ML SYRINGE SQ SCH (17:52)
[2018-03-07] MEDS: LEVOFLOXACIN 750 MG TAB PO SCH (17:52)
[2018-03-07] MEDS: SULFAMETHOX-TMP 80-16MG/ML 320 MG in DEXTROSE 5% IN WATER 500 ML IVPB SCH ×2 (21:44)
--- NOTE | 2018-03-07 22:17 | P.CON ---
Consult Note - . 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 She states that she has been stable and has been taken off all of her medications. Patient states that about one month ago she started having cough and shortness of breath that gradually worsened. She had an appointment with her primary care doctor and had a chest x-ray and was subsequently placed on Levaquin for 10 days. She did contact her physicians at [facility] who requested a CAT scan be done. On March 01, chest CAT scan with contrast showed nonspecific multifocal coarse ground glass infiltrates suspicious for multifocal pneumonia. Correlate clinically and progress studies are recommended. She was then placed on oral prednisone by her PCP and [facility] placed her on acyclovir. Unfortunately, she continued to worsen with increasing shortness of breath and cough. She states her cough has been nonproductive. She came into [facility] emergency center. She was found to have a white count of 20.5, lactic acid was 1.4, platelet count 580, BUN 17 creatinine 0.75. AST 38 and albumin 3.1. Blood culture is status post receive and sputum cultures uncollected. Chest x-ray showed increased multifocal patchy airspace disease. Differential includes multifocal pneumonia, interstitial pneumonitis, hypersensitivity pneumonitis or drug reaction. Patient had a repeat chest x-ray done this morning and report is pending. Patient was resumed on acyclovir orally, started on Levaquin, Zosyn and vancomycin and admitted to the pediatric unit. Patient is also followed by Dr. Serrano. Patient states that she is a little bit better since admission. Her appetite is improved. Her cough remains nonproductive. 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 She's had some outpatient evaluation and was treated with several coursesof antibiotic therapy. She did have outpatient x-ray and then computed tomography scan which was markedly abnormal and consequently presents to Hospital. There is evidence of multi focal pneumonia. There is concerns to underlying infectious as well as none infectious etiologies of the current abnormalities. the patient had been on steroid therapy that has now been tapered. She was also treated with prophylactic medications including acyclovir and Bactrim but have stopped now several months ago. With this there is some risk of pneumocystis as well as other opportunistic pathogens. Antimicrobial therapy is directed at gram-negative organisms including Pseudomonas.intravenoustrimethoprim sulfamethoxazole is requested, and with this the vancomycin may be discontinued. Multiple cultures are already in Process. Did have outpatient viral pcr swab which was negative for viral pathogens. If she does not rapidly improve may require bronchoscopy for further diagnostics. I agree with the evaluation assessment and plan as dictated by MITIGATION SUPERVISOR Mrs. Kathya Mustafa.
[2018-03-08] MEDS: ONDANSETRON 4 MG/2 ML VIAL IVP PRN ×2 (01:46→21:32)
[2018-03-08] MEDS: PIPERACILLIN-TAZOBACTAM 3.375 GM in DEXTROSE/WATER 1 50ML.BAG IVPB SCH ×3 (01:47→17:14)
[2018-03-08] MEDS: LACTATED RINGERS 1,000 ML IV SCH ×2 (01:47→17:17)
[2018-03-08] MEDS ORDERED: VANCOMYCIN TROUGH DUE 1 EACH MISC MISCELLANE ONE (04:00)
[2018-03-08] MEDS: PANTOPRAZOLE 40 MG TABLET PO SCH ×2 (06:44→19:20)
[2018-03-08] MEDS: IPRATROPIUM-ALBUTEROL 3 ML NEB INHALATION SCH ×4 (09:24→20:41)
[2018-03-08] MEDS: ACYCLOVIR 200 MG CAP PO SCH ×2 (09:38→20:39)
[2018-03-08] MEDS: ENOXAPARIN 40 MG/0.4 ML SYRINGE SQ SCH (09:38)
[2018-03-08] MEDS: URSODIOL 300 MG CAP PO SCH ×2 (09:38→20:40)
[2018-03-08] MEDS: SULFAMETHOX-TMP 80-16MG/ML 320 MG in DEXTROSE 5% IN WATER 500 ML IVPB SCH ×4 (09:38→21:32)
--- NOTE | 2018-03-08 11:44 | P.PN ---
Subjective Progress Note Date: 03/08/18 Principal diagnosis: Acute hypoxic respiratory failure secondary to bilateral pneumonia. This is a very pleasant 57-year-old female patient who follows with Dr. Bauer as her primary care physician. She has a history of non-Hodgkin's lymphoma diagnosed in the neck region in November 2013. She completed chemotherapy in March 2014. She has also undergone bone marrow transplant 2. She has been followed at the [facility]. She states she has been in remission since that time. Her last PET scan done in this facility March 2014 showed no hypermetabolic uptake. She also states she had been on antifungals and prednisone until approximately November of this year. Approximately one month ago she developed shortness of breath, cough and congestion. She was seen by her PCP and placed on Levaquin 750 mg for 10 days. She had no real improvement and in follow-up was started on steroids. She continued to have significant cough and congestion. Chest x-ray revealed abnormalities and she had an outpatient CAT scan done on 2017. There was noted nonspecific multifocal coarse groundglass infiltrate suspicious for multifocal pneumonia. She did not hear back on these results. Her symptoms continued to worsen and she presented here to the emergency room yesterday for the same. Chest x-ray showed increasing multifocal patchy airspace disease. White count 20.4. Lactic 1.4. She's been initiated on vancomycin, Zosyn and Levaquin along with bronchodilators. She is seen today in consultation on the pediatric unit. She is awake and alert in no acute distress. She's been breathing slightly better today as compared to yesterday. He is maintaining O2 saturations in the low 90s on 2 L/m per nasal cannula. She's been afebrile. Hemodynamically stable. She has a loose nonproductive cough. Reevaluated today on 03/08/2018, patient is basically about the same. Continues to have shortness of breath, some cough, unable to clear much secretions. Patient remains on 3 L nasal cannula, labs from admission were reviewed including her leukocytosis with WBC count 20.4. Electrolytes and renal profile were noted to be normal. Patient remains on broad-spectrum antibiotics as per infectious disease on the case, however considering the patient overall clinical status and underlying relatively immunocompromised state with previous bone marrow transplant, I would recommend the bronchoscopy and bronchoalveolar lavage of both lungs. This will be done tomorrow. Patient was made aware of my plans, and she is agreeable to proceed with bronchoscopy and bronchoalveolar lavage. Objective - Vital Signs Vital signs: Vital Signs Temp 98.3 F 03/08/18 07:51 Pulse 88 03/08/18 09:42 Resp 20 03/08/18 07:51 BP 94/63 03/08/18 07:51 Pulse Ox 92 L 03/08/18 07:51 Intake & Output 03/07/18 03/08/18 03/08/18 18:59 06:59 18:59 Other: # Voids 2 3 - Exam Physical Exam: Revealed a 57-year-old female slightly anxious, on nasal cannula , in no distress. Head: Atraumatic, normocephalic. HEENT:[Neck is supple.] [No neck masses.] [No thyromegaly.] [No JVD.] Chest: [Crackles and rhonchi noted bilaterally symmetrical chest expansion, no chest wall tenderness.] Cardiac Exam: [Normal S1 and S2, no S3 gallop, no murmur.] Abdomen: [Soft, nontender, no megaly, no rebound, no guarding, normal bowel sounds.] Extremities: [No clubbing, no edema, no cyanosis.] Neurological Exam: [No focal neurologic deficit. Lymphatics: No lymphadenopathy. Psychiatric: Normal mood affect and mental status examination.] - Labs CBC & Chem 7: 03/06/18 13:54 03/06/18 13:54 Labs: Microbiology - Last 24 Hours (Table) 03/06/18 13:54 Blood Culture - Preliminary Blood No Growth after 24 hours Assessment and Plan Assessment: #1 Acute hypoxic respiratory failure secondary to bilateral multifocal pneumonia , suspect community-acquired in an immunocompromised patient. #2 Leukocytosis secondary to above. #3 History of non-Hodgkin's lymphoma status post chemotherapy and bone marrow transplant 2. #4 Gastroesophageal reflux disease. Recommendation: Continue present course of antibiotics, discussed with the patient the pros and cons of bronchoscopy, at this point I feel it would be recommended, and the patient is willing to proceed. We will do that tomorrow and based on the final cultures further recommendations will follow. In the meantime continue present treatment plan including broad-spectrum antibiotics, oxygen, bronchodilators. Time with Patient: Less than 30
[2018-03-08] MEDS: LEVOFLOXACIN 750 MG TAB PO SCH (17:14)
--- NOTE | 2018-03-08 22:46 | P.PN ---
Subjective Progress Note Date: 03/08/18 This is a 57-year-old female patient of gas past medical history of T- cell lymphoma of the care of Dr. 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 She states that she has been stable and has been taken off all of her medications. Patient states that about one month ago she started having cough and shortness of breath that gradually worsened. She had an appointment with her primary care doctor and had a chest x-ray and was subsequently placed on Levaquin for 10 days. She did contact her physicians at [facility] who requested a CAT scan be done. On March 01, chest CAT scan with contrast showed nonspecific multifocal coarse ground glass infiltrates suspicious for multifocal pneumonia. Correlate clinically and progress studies are recommended. She was then placed on oral prednisone by her PCP and [facility] placed her on acyclovir. Unfortunately, she continued to worsen with increasing shortness of breath and cough. She states her cough has been nonproductive. She came into [facility] emergency center. She was found to have a white count of 20.5, lactic acid was 1.4, platelet count 580, BUN 17 creatinine 0.75. AST 38 and albumin 3.1. Blood culture is status post receive and sputum cultures uncollected. Chest x-ray showed increased multifocal patchy airspace disease. Differential includes multifocal pneumonia, interstitial pneumonitis, hypersensitivity pneumonitis or drug reaction. Patient had a repeat chest x-ray done this morning and report is pending. Patient was resumed on acyclovir orally, started on Levaquin, Zosyn and vancomycin and admitted to the pediatric unit. Patient is also followed by Dr. Serrano. Patient states that she is a little bit better since admission. Her appetite is improved. Her cough remains nonproductive. She does state she had a mild fever for a couple of days last week but none at this time. 03/08/2018 patient continues to feel short of breath she has cough that is nonproductive feels weak and ill. Objective - Vital Signs Vital signs: Vital Signs Temp 98.3 F 03/08/18 12:20 Pulse 105 H 03/08/18 20:51 Resp 18 03/08/18 16:30 BP 93/63 03/08/18 12:20 Pulse Ox 93 L 03/08/18 16:30 Intake & Output 03/08/18 03/08/18 03/09/18 06:59 18:59 06:59 Intake Total 2049 Balance 2049 Intake: Intake, IV Titration 1550 Amount Lactated Ringers 1,000 ml 1000 @ 125 mls/hr IV .Q8H [facility]INA Rx#:[id number] Piperacillin-Tazobactam 3 50 .375 gm In Dextrose/Water 1 50ml.bag @ 12.5 mls/hr IVPB Q8HR [facility] Rx#: [id number] Sulfamethox-Tmp 80-16Mg/ 500 ml 320 mg In Dextrose 5% in Water 500 ml @ 250 mls /hr IVPB Q12HR [facility] Rx#: [id number] Oral 500 Other: # Voids 3 3 - Exam Gen: This is a 57-year-old female. She is sitting up in bed and appears to be comfortable. No apparent distress noted. HEENT: Head is atraumatic, normocephalic. Pupils equal, round. Sclerae is anicteric. Conjunctiva pink. Mucous members of the mouth are moist. No lesions or thrush noted. Dentition is in good order. NECK: Supple. No JVD. No lymphadenopathy. No thyromegaly. LUNGS: Scattered rhonchi throughout bilateral. Expiratory wheezes few basilar crackles HEART: Regular rate and rhythm. No murmur. ABDOMEN: Soft. Bowel sounds are present. No masses. No tenderness. EXTREMITIES: Trace bilateral pedal edema. No calf tenderness. Dorsalis pedis + 2 bilaterally. NEUROLOGICAL: Patient is awake, alert and oriented x3 - Labs CBC & Chem 7: 03/06/18 13:54 03/06/18 13:54 Labs: Microbiology - Last 24 Hours (Table) 03/06/18 13:54 Blood Culture - Preliminary Blood No Growth after 48 hours Laboratory Results WBC 20.4 k/uL (3.8-10.6) H 03/06/18 13:54 RBC 4.03 m/uL (3.80-5.40) 03/06/18 13:54 Hgb 11.3 gm/dL (11.4-16.0) L 03/06/18 13:54 Hct 35.8 % (34.0-46.0) 03/06/18 13:54 MCV 88.7 fL (80.0-100.0) 03/06/18 13:54 MCH 27.9 pg (25.0-35.0) 03/06/18 13:54 MCHC 31.5 g/dL (31.0-37.0) 03/06/18 13:54 RDW 14.6 % (11.5-15.5) 03/06/18 13:54 Plt Count 580 k/uL (150-450) H 03/06/18 13:54 Neutrophils % 73 % 03/06/18 13:54 Lymphocytes % 19 % 03/06/18 13:54 Monocytes % 6 % 03/06/18 13:54 Eosinophils % 2 % 03/06/18 13:54 Basophils % 0 % 03/06/18 13:54 Neutrophils # 14.8 k/uL (1.3-7.7) H 03/06/18 13:54 Lymphocytes # 3.9 k/uL (1.0-4.8) 03/06/18 13:54 Monocytes # 1.1 k/uL (0-1.0) H 03/06/18 13:54 Eosinophils # 0.3 k/uL (0-0.7) 03/06/18 13:54 Basophils # 0.0 k/uL (0-0.2) 03/06/18 13:54 Hypochromasia Slight 03/06/18 13:54 PT 9.8 sec (9.0-12.0) 03/06/18 13:54 INR 1.0 (<1.2) 03/06/18 13:54 APTT 22.2 sec (22.0-30.0) 03/06/18 13:54 Sodium 138 mmol/L (137-145) 03/06/18 13:54 Potassium 4.2 mmol/L (3.5-5.1) 03/06/18 13:54 Chloride 107 mmol/L (98-107) 03/06/18 13:54 Carbon Dioxide 23 mmol/L (22-30) 03/06/18 13:54 Anion Gap 8 mmol/L 03/06/18 13:54 BUN 17 mg/dL (7-17) 03/06/18 13:54 Creatinine 0.75 mg/dL (0.52-1.04) 03/06/18 13:54 Est GFR (CKD-EPI)AfAm >90 (>60 ml/min/1.73 sqM) 03/06/18 13:54 Est GFR (CKD-EPI)NonAf 88 (>60 ml/min/1.73 sqM) 03/06/18 13:54 Glucose 105 mg/dL (74-99) H 03/06/18 13:54 Plasma Lactic Acid Matheus 1.4 mmol/L (0.7-2.0) 03/06/18 15:25 Calcium 9.0 mg/dL (8.4-10.2) 03/06/18 13:54 Magnesium 2.0 mg/dL (1.6-2.3) 03/06/18 13:54 Total Bilirubin 0.4 mg/dL (0.2-1.3) 03/06/18 13:54 AST 38 U/L (14-36) H 03/06/18 13:54 ALT 30 U/L (9-52) 03/06/18 13:54 Alkaline Phosphatase 46 U/L (38-126) 03/06/18 13:54 Total Protein 6.5 g/dL (6.3-8.2) 03/06/18 13:54 Albumin 3.1 g/dL (3.5-5.0) L 03/06/18 13:54 Microbiology 03/06/18 13:54 Blood Blood Culture - Preliminary No Growth after 48 hours Assessment and Plan (1) Multifocal pneumonia Narrative/Plan: 57 year old woman with a history of T-cell lymphoma relates that she's been ill for about a month. She's had some outpatient evaluation and was treated with several coursesof antibiotic therapy. She did have outpatient x-ray and then computed tomography scan which was markedly abnormal and consequently presents to Hospital. There is evidence of multi focal pneumonia. There is concerns to underlying infectious as well as none infectious etiologies of the current abnormalities. the patient had been on steroid therapy that has now been tapered. She was also treated with prophylactic medications including acyclovir and Bactrim but have stopped now several months ago. With this there is some risk of pneumocystis as well as other opportunistic pathogens. Antimicrobial therapy is directed at gram-negative organisms including Pseudomonas.intravenous trimethoprim sulfamethoxazole is requested, and with this the vancomycin may be discontinued. Multiple cultures are already in Process. Did have outpatient viral pcr swab which was negative for viral pathogens. There has been little change of her status as of 03/08/2018. The case is discussed with pulmonary and she has plan for bronchoscopy or further evaluation including opportunistic pathogens. Continue current antimicrobial therapy, which is currently including trimethoprim sulfamethoxazole for pneumocystis treatment. Continue her treatments with nebulizers and oxygen. She relates she still feels quite poorly. Current Visit: Yes Status: Acute Code(s): J18.9 - PNEUMONIA, UNSPECIFIED ORGANISM SNOMED Code(s): 504088206
--- NOTE | 2018-03-08 23:35 | PN ---
PROGRESS NOTE DATE OF SERVICE: 03/08/2018. PRESENTING COMPLAINT: Cough, shortness of breath. INTERVAL HISTORY: This is a patient who was treated for non-Hodgkin's lymphoma, in remission. She presented with worsening shortness of breath, worsening CT scan. Patient is on broad- spectrum antibiotics and also on Bactrim for PCP. REVIEW OF SYSTEMS: Done for constitutional, cardiovascular, GI, pulmonary; relevant findings as above. Patient is eating a bit better. CURRENT MEDICATIONS: Reviewed. They include acyclovir, DuoNeb , Levaquin, IV Zosyn, Bactrim. PHYSICAL EXAMINATION: Afebrile. Pulse 89, respiration 20, blood pressure 93/63, pulse 92% on 3 L. GENERAL APPEARANCE: Sitting up, awake. EYES: Pupils equal. Conjunctivae normal. HEENT: External appearance of nose and ears normal. Oral cavity normal. NECK: JVD not raised. Mass not palpable. RESPIRATORY: Effort increased. LUNGS: Bilateral coarse crackles, diffuse. CARDIOVASCULAR: First and second sounds normal. No edema. ABDOMEN: Soft, non-tender. Liver and spleen not palpable. PSYCHIATRY: Alert and oriented x3. Mood and affect normal. INVESTIGATIONS: CT scan of chest shows diffuse, possibly interstitial fibrosis and increasing infiltrates compared to the last CT scan. ASSESSMENT: 1. This is a patient who presented with what appears to be currently bilateral pneumonia, but need to rule out opportunistic infection, PCP. 2. Possibly underlying pulmonary fibrosis; could be side effect of medications. 3. Gastroesophageal reflux disease. 4. Hyperlipidemia. 5. Leukocytosis from steroids possibly. 6. Hypotension. PLAN: Continue current medication and treatment plan. Care was discussed with the patient. Patient is slow to respond. Discussed with Dr. Urbano. He will proceed to do a bronchoscopy tomorrow. Dr. Crawford is also following the case. Repeat labs in the morning. MMODL / IJN: [id number] /
[2018-03-09] MEDS: PIPERACILLIN-TAZOBACTAM 3.375 GM in DEXTROSE/WATER 1 50ML.BAG IVPB SCH ×3 (00:22→16:29)
[2018-03-09 06:47] LABS: Basophils # (A) 0.1 k/uL (0-0.2); Basophils % (A) 1 %; Eosinophils # (A) 0.5 k/uL (0-0.7); Eosinophils % (A) 4 %; HCT 37.4 % (34.0-46.0); HGB 11.3 gm/dL (11.4-16.0); Hypochromasia Slight; Lymphocytes # (A) 3.8 k/uL (1.0-4.8); Lymphocytes % (A) 31 %; MCH 27.4 pg (25.0-35.0); MCHC 30.2 g/dL (31.0-37.0); MCV 90.6 fL (80.0-100.0); Mean Platelet Volume 6.9; Monocytes # (A) 1.2 k/uL (0-1.0); Monocytes % (A) 9 %; Neutrophils # (A) 6.5 k/uL (1.3-7.7); Neutrophils % (A) 53 %; Platelet Count 347 k/uL (150-450); RBC 4.13 m/uL (3.80-5.40); RDW 14.4 % (11.5-15.5); WBC 12.2 k/uL (3.8-10.6)
[2018-03-09 07:02] LABS: Calcium 8.4 mg/dL (8.4-10.2); Potassium 4.1 mmol/L (3.5-5.1)
[2018-03-09] MEDS: IPRATROPIUM-ALBUTEROL 3 ML NEB INHALATION SCH ×4 (07:35→20:05)
[2018-03-09] MEDS: LACTATED RINGERS 1,000 ML IV SCH ×4 (07:40→20:40)
[2018-03-09] MEDS: SULFAMETHOX-TMP 80-16MG/ML 320 MG in DEXTROSE 5% IN WATER 500 ML IVPB SCH ×4 (08:33→20:41)
[2018-03-09] MEDS: ENOXAPARIN 40 MG/0.4 ML SYRINGE SQ SCH (08:33)
[2018-03-09] MEDS: ONDANSETRON 4 MG/2 ML VIAL IVP PRN (11:03)
[2018-03-09] MEDS ORDERED: IV FLUID CONTINUATION 1,000 ML IV ONE (11:45)
[2018-03-09] MEDS ORDERED: SODIUM CHLORIDE 0.9% 500 ML IV ONE (11:45)
[2018-03-09] MEDS ORDERED: KETAMINE 10 MG/ML 20 ML VIAL ONE (11:50)
[2018-03-09] MEDS ORDERED: PROPOFOL 10 MG/ML 20 ML VIAL IV ONE (11:50)
[2018-03-09] MEDS ORDERED: MIDAZOLAM 2 MG/2 ML VIAL ONE (11:50)
[2018-03-09] MEDS ORDERED: LIDOCAINE 1% INJ 10MG/ML (20 ML MDV) ONE (11:50)
[2018-03-09] MEDS ORDERED: LIDOCAINE 2% INJ 20 MG/ML INTRATRACH ONE (12:08)
--- NOTE | 2018-03-09 13:03 | P.PN ---
Subjective Progress Note Date: 03/09/18 Principal diagnosis: Acute hypoxic respiratory failure secondary to bilateral pneumonia. This is a very pleasant 57-year-old female patient who follows with Dr. Bauer as her primary care physician. She has a history of non-Hodgkin's lymphoma diagnosed in the neck region in November 2013. She completed chemotherapy in March 2014. She has also undergone bone marrow transplant 2. She has been followed at the [facility]. She states she has been in remission since that time. Her last PET scan done in this facility March 2014 showed no hypermetabolic uptake. She also states she had been on antifungals and prednisone until approximately November of this year. Approximately one month ago she developed shortness of breath, cough and congestion. She was seen by her PCP and placed on Levaquin 750 mg for 10 days. She had no real improvement and in follow-up was started on steroids. She continued to have significant cough and congestion. Chest x-ray revealed abnormalities and she had an outpatient CAT scan done on 2017. There was noted nonspecific multifocal coarse groundglass infiltrate suspicious for multifocal pneumonia. She did not hear back on these results. Her symptoms continued to worsen and she presented here to the emergency room yesterday for the same. Chest x-ray showed increasing multifocal patchy airspace disease. White count 20.4. Lactic 1.4. She's been initiated on vancomycin, Zosyn and Levaquin along with bronchodilators. She is seen today in consultation on the pediatric unit. She is awake and alert in no acute distress. She's been breathing slightly better today as compared to yesterday. He is maintaining O2 saturations in the low 90s on 2 L/m per nasal cannula. She's been afebrile. Hemodynamically stable. She has a loose nonproductive cough. Reevaluated today on 03/08/2018, patient is basically about the same. Continues to have shortness of breath, some cough, unable to clear much secretions. Patient remains on 3 L nasal cannula, labs from admission were reviewed including her leukocytosis with WBC count 20.4. Electrolytes and renal profile were noted to be normal. Patient remains on broad-spectrum antibiotics as per infectious disease on the case, however considering the patient overall clinical status and underlying relatively immunocompromised state with previous bone marrow transplant, I would recommend the bronchoscopy and bronchoalveolar lavage of both lungs. This will be done tomorrow. Patient was made aware of my plans, and she is agreeable to proceed with bronchoscopy and bronchoalveolar lavage. Patient was reevaluated on 03/09/2018, clinically about the same, underwent bronchoscopy and bronchoalveolar lavage, please refer to the full operative report. Patient is still on broad-spectrum antibiotics, however after the findings on the bronchoscopy, I'm more inclined to think that this is not a true infectious process, hence I will go ahead and add Solu-Medrol until the final report from the cultures come back. 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 WBC count is down to 12.2 hemoglobin is 11.3 left lites are normal renal profile is normal. Objective - Vital Signs Vital signs: Vital Signs Temp 98.5 F 03/09/18 07:46 Pulse 106 H 03/09/18 12:57 Resp 20 03/09/18 12:57 BP 98/53 03/09/18 07:46 Pulse Ox 91 L 03/09/18 07:46 Intake & Output 03/08/18 03/09/18 03/09/18 18:59 06:59 18:59 Intake Total 2050 600 200 Balance 2050 600 200 Intake: IV 200 Intake, IV Titration 1550 Amount Lactated Ringers 1,000 ml 1000 @ 125 mls/hr IV .Q8H [facility] Rx#:[id number] Piperacillin-Tazobactam 3 50 .375 gm In Dextrose/Water 1 50ml.bag @ 12.5 mls/hr IVPB Q8HR [facility] Rx#: [id number] Sulfamethox-Tmp 80-16Mg/ 500 ml 320 mg In Dextrose 5% in Water 500 ml @ 250 mls /hr IVPB Q12HR [facility] Rx#: [id number] Oral 500 600 Other: # Voids 3 1 1 # Bowel Movements 1 - Exam Physical Exam: Revealed a 57-year-old female not in distress, however, on high flow nasal cannula post bronchoscopy. Head: Atraumatic, normocephalic. HEENT:[Neck is supple.] [No neck masses.] [No thyromegaly.] [No JVD.] Chest: [Crackles and rhonchi noted bilaterally symmetrical chest expansion, no chest wall tenderness.] Cardiac Exam: [Normal S1 and S2, no S3 gallop, no murmur.] Abdomen: [Soft, nontender, no megaly, no rebound, no guarding, normal bowel sounds.] Extremities: [No clubbing, no edema, no cyanosis.] Neurological Exam: [No focal neurologic deficit. Lymphatics: No lymphadenopathy. Psychiatric: Normal mood affect and mental status examination.] - Labs CBC & Chem 7: 03/09/18 05:54 03/09/18 05:54 Labs: Abnormal Lab Results - Last 24 Hours (Table) 03/09/18 Range/Units 05:54 WBC 12.2 H (3.8-10.6) k/uL Hgb 11.3 L (11.4-16.0) gm/dL MCHC 30.2 L (31.0-37.0) g/dL Monocytes # 1.2 H (0-1.0) k/uL Microbiology - Last 24 Hours (Table) 03/06/18 13:54 Blood Culture - Preliminary Blood No Growth after 48 hours Assessment and Plan Assessment: #1 Acute hypoxic respiratory failure secondary to bilateral multifocal pneumonia , suspect community-acquired in an immunocompromised patient. #2 Leukocytosis secondary to above. #3 History of non-Hodgkin's lymphoma status post chemotherapy and bone marrow transplant 2. #4 Gastroesophageal reflux disease. 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 Lavage of the left upper lobe and lingula was done. #6 status post bronchoscopy and bronchoalveolar lavage of the right middle lobe and right upper lobe. Postoperative day #0. Recommendation: Continue present course of antibiotics, will add Solu-Medrol, continue bronchodilators, will follow closely, await report from the bronchoalveolar lavage which was sent today for different diagnostic studies. Time with Patient: Less than 30
--- NOTE | 2018-03-09 13:03 | PCN ---
PROCEDURE NOTE OPERATIVE REPORT: Bronchoscopy, and bronchoalveolar lavage of the right upper lobe and right middle lobe. PREOPERATIVE DIAGNOSIS: Bilateral pneumonia, mostly right-sided in a patient who is immunocompromised with previous history of the lymphoma and bone marrow transplant. POSTOPERATIVE DIAGNOSIS: Bilateral pneumonia, mostly right-sided in a patient who is immunocompromised with previous history of the lymphoma and bone marrow transplant. ANESTHESIA USED: IV conscious sedation. PROCEDURE DESCRIPTION: Patient was prepared according to the bronchoscopy protocol. O2 was applied via nasal cannula, patient was in a supine position, and we monitored O2 saturation, blood pressure was intermittently monitored, and cardiac rhythm was continuously monitored. After adequate IV conscious sedation, the right naris was anesthetized topically with lidocaine, and the bronchoscope was advanced through the right naris down to the area of the vocal cords. Vocal cords were noted to be patent. Lidocaine applied over the vocal cords, the bronchoscope was further advanced down to the trachea, thorough examination was done of trachea, juan pablo, right upper lobe, right middle lobe, right lower lobe, left upper lobe lingula and left lower lobe. There was evidence of clear secretions noted bilaterally, but no evidence of any purulent secretions. No evidence of any endobronchial tumor was noted. No evidence of bleeding noted in the airways. Mucosa was noted to be relatively unremarkable. Then, the bronchoscope was wedged in the right middle lobe, and I was able to lavage the right middle lobe medial and lateral segments. Then we moved up to the right upper lobe, lavage was also done of the different segments of the right upper lobe. The procedure was well tolerated, no evidence of any immediate complication. The fluid was sent for different diagnostic studies. MMODL / IJN: [id number] /
[2018-03-09] MEDS: ACYCLOVIR 200 MG CAP PO SCH ×2 (13:38→20:40)
[2018-03-09] MEDS: LEVOFLOXACIN 750 MG TAB PO SCH (13:38)
[2018-03-09] MEDS: URSODIOL 300 MG CAP PO SCH ×2 (13:38→20:40)
[2018-03-09] MEDS: PANTOPRAZOLE 40 MG TABLET PO SCH ×2 (13:38→15:24)
[2018-03-09] MEDS: methylPREDNISolone SOD SUCCI 125 MG/2 ML VIAL IV SCH (16:30)
[2018-03-09 19:07] LABS: Appearance,BF Clear; Color,BF Colorless; Mononuclear WBC,Body Fluid 15 %; Nucleated Cells, Body Fluid 140 /uL; Polynuclear WBC,Body Fluid 83 %; RBC, Body Fluid 35 /uL
[2018-03-10] MEDS: methylPREDNISolone SOD SUCCI 125 MG/2 ML VIAL IV SCH ×4 (00:04→23:49)
[2018-03-10] MEDS: PIPERACILLIN-TAZOBACTAM 3.375 GM in DEXTROSE/WATER 1 50ML.BAG IVPB SCH ×4 (00:04→23:49)
[2018-03-10] MEDS: ONDANSETRON 4 MG/2 ML VIAL IVP PRN (00:18)
[2018-03-10] MEDS: LACTATED RINGERS 1,000 ML IV SCH ×2 (05:55→14:06)
[2018-03-10] MEDS: PANTOPRAZOLE 40 MG TABLET PO SCH ×2 (06:26→15:53)
[2018-03-10 06:52] LABS: Potassium 4.3 mmol/L (3.5-5.1)
--- NOTE | 2018-03-10 07:05 | PN ---
PROGRESS NOTE DATE OF SERVICE: 03/09/2018 PRESENTING COMPLAINT: Cough, short of breath. INTERVAL HISTORY: This is a patient status post treatment for non-Hodgkin's lymphoma in remission presents with shortness of breath. CT scan did show fibrosis. The patient has been on broad-spectrum antibiotics. Patient did undergo bronchoscopy today. No purulent secretions were obtained. The patient feels a little bit better. at the bedside. Did tolerate a diet. Has been having some diarrhea. No abdominal pain. Does feel weak and tired. REVIEW OF SYSTEMS: Done for constitutional, cardiovascular, GI, pulmonary; relevant findings as above. CURRENT MEDICATIONS: Current medications are reviewed that include acyclovir, Levaquin, IV Solu-Medrol, IV Zosyn, Bactrim. PHYSICAL EXAMINATION: On examination. Afebrile, pulse 100, respiration 20, blood pressure 96/62, pulse ox 91% on 5 L. GENERAL APPEARANCE: Sitting up, awake, tired appearing. EYES: Pupils equal. Conjunctivae normal. HEENT: External appearance of the nose and ears normal. Oral cavity normal. NECK: JVD not raised. Mass not palpable. RESPIRATORY: Effort increased. LUNGS: Bilateral coarse crackles diffuse. CARDIOVASCULAR: First and second sounds normal. No edema. ABDOMEN: Soft, nontender. Liver and spleen not palpable. PSYCHIATRY: Alert and oriented x3. Mood and affect normal. INVESTIGATIONS: White count 12.2, hemoglobin 11.3. Potassium 4.1. Bronchial washings are pending. ASSESSMENT: 1. This is a patient who presents with bilateral pneumonia and this could be underlying opportunistic infection including PCP. 2. Bilateral pulmonary fibrosis could be side effect of tumor medications. 3. Gastroesophageal reflux disease. 4. Hyperlipidemia. 5. Leukocytosis from steroids. 6. Hypotension. 7. Acute hypoxic respiratory failure from underlying pneumonia/pulmonary fibrosis. PLAN: Care was discussed with the patient, at the bedside. If the cultures remain negative, patient may probably need a lung biopsy for more definitive determination. MMODL / IJN: [id number] /
[2018-03-10] MEDS: IPRATROPIUM-ALBUTEROL 3 ML NEB INHALATION SCH ×4 (07:13→21:00)
[2018-03-10] MEDS: SULFAMETHOX-TMP 80-16MG/ML 320 MG in DEXTROSE 5% IN WATER 500 ML IVPB SCH ×4 (08:09→21:07)
[2018-03-10] MEDS: ACYCLOVIR 200 MG CAP PO SCH ×2 (08:09→21:07)
[2018-03-10] MEDS: URSODIOL 300 MG CAP PO SCH ×2 (08:09→21:08)
[2018-03-10] MEDS: ENOXAPARIN 40 MG/0.4 ML SYRINGE SQ SCH (08:10)
--- NOTE | 2018-03-10 09:50 | XR ---
EXAMINATION TYPE: XR chest 1V DATE OF EXAM: 03/10/2018 HISTORY: Shortness of breath. COMPARISON: March 07, 2019 TECHNIQUE: Single view of the chest is submitted. FINDINGS: Demonstrated are scattered senescent parenchymal change. Increasing perihilar and basilar infiltrates. Reflect underlying pneumonia. The heart is stable. Hilar and mediastinal structures are within normal limits. Degenerative changes are seen of the dorsal spine. IMPRESSION: 1. Progressive pneumonia. Continued follow-up advised.
[2018-03-10 09:53] LABS: Basophils % (A) 0 %; Eosinophils % (A) 1 %; HGB 12.3 gm/dL (11.4-16.0); Hypochromasia Slight; Lymphocytes % (A) 24 %; MCH 27.6 pg (25.0-35.0); Mean Platelet Volume 7.8; Monocytes # (A) 0.2 k/uL (0-1.0); Monocytes % (A) 3 %; Neutrophils # (A) 6.1 k/uL (1.3-7.7); Neutrophils % (A) 72 %; Platelet Count 402 k/uL (150-450); RBC 4.45 m/uL (3.80-5.40); RDW 14.7 % (11.5-15.5); WBC 8.5 k/uL (3.8-10.6)
--- NOTE | 2018-03-10 14:03 | P.PN ---
Subjective Progress Note Date: 03/10/18 This is a 57-year-old female patient of gas past medical history of T- cell lymphoma of the care of Dr. 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 She states that she has been stable and has been taken off all of her medications. Patient states that about one month ago she started having cough and shortness of breath that gradually worsened. She had an appointment with her primary care doctor and had a chest x-ray and was subsequently placed on Levaquin for 10 days. She did contact her physicians at [facility] who requested a CAT scan be done. On March 01, chest CAT scan with contrast showed nonspecific multifocal coarse ground glass infiltrates suspicious for multifocal pneumonia. Correlate clinically and progress studies are recommended. She was then placed on oral prednisone by her PCP and [facility] placed her on acyclovir. Unfortunately, she continued to worsen with increasing shortness of breath and cough. She states her cough has been nonproductive. She came into [facility] emergency center. She was found to have a white count of 20.5, lactic acid was 1.4, platelet count 580, BUN 17 creatinine 0.75. AST 38 and albumin 3.1. Blood culture is status post receive and sputum cultures uncollected. Chest x-ray showed increased multifocal patchy airspace disease. Differential includes multifocal pneumonia, interstitial pneumonitis, hypersensitivity pneumonitis or drug reaction. Patient had a repeat chest x-ray done this morning and report is pending. Patient was resumed on acyclovir orally, started on Levaquin, Zosyn and vancomycin and admitted to the pediatric unit. Patient is also followed by Dr. Serrano. Patient states that she is a little bit better since admission. Her appetite is improved. Her cough remains nonproductive. She does state she had a mild fever for a couple of days last week but none at this time. 03/08/2018 patient continues to feel short of breath she has cough that is nonproductive feels weak and ill. 03/10/2018 patient is status post bronchoscopy. She's feeling relatively well today. She had about 25% of her lunch. She denying difficulties such as fevers or chills. She still very short of breath. Nonproductive cough. Dyspnea on exertion continues Objective - Vital Signs Vital signs: Vital Signs Temp 98.1 F 03/10/18 11:54 Pulse 88 03/10/18 12:25 Resp 16 03/10/18 11:54 BP 99/65 03/10/18 11:54 Pulse Ox 95 03/10/18 11:54 Intake & Output 03/09/18 03/10/18 03/10/18 18:59 06:59 18:59 Intake Total 200 1380 Balance 200 1380 Intake: IV 200 Oral 1380 Other: # Voids 1 1 # Bowel Movements 2 - Exam Gen: This is a 57-year-old female. She is sitting up in bed and appears to be comfortable. No apparent distress noted. HEENT: Head is atraumatic, normocephalic. Pupils equal, round. Sclerae is anicteric. Conjunctiva pink. Mucous members of the mouth are moist. No lesions or thrush noted. Dentition is in good order. NECK: Supple. No JVD. No lymphadenopathy. No thyromegaly. LUNGS: Scattered rhonchi throughout bilateral. Expiratory wheezes few basilar crackles HEART: Regular rate and rhythm. No murmur. ABDOMEN: Soft. Bowel sounds are present. No masses. No tenderness. EXTREMITIES: Trace bilateral pedal edema. No calf tenderness. Dorsalis pedis + 2 bilaterally. NEUROLOGICAL: Patient is awake, alert and oriented x3 - Labs CBC & Chem 7: 03/10/18 06:15 03/10/18 06:15 Labs: Abnormal Lab Results - Last 24 Hours (Table) 03/10/18 03/10/18 Range/Units 06:15 06:15 MCHC 30.0 L (31.0-37.0) g/dL Sodium 136 L (137-145) mmol/L Glucose 154 H (74-99) mg/dL Microbiology - Last 24 Hours (Table) 03/09/18 12:00 Gram Stain - Preliminary Bronchial Washings - Right Bronchial Washings Culture - Preliminary 03/09/18 12:00 Fungal Culture - Preliminary Bronchial Washings - Right 03/09/18 12:00 Acid Fast Bacilli Culture - Preliminary Bronchial Washings - Right 03/06/18 13:54 Blood Culture - Preliminary Blood No Growth after 72 hours Laboratory Results WBC 8.5 k/uL (3.8-10.6) 03/10/18 06:15 RBC 4.45 m/uL (3.80-5.40) 03/10/18 06:15 Hgb 12.3 gm/dL (11.4-16.0) 03/10/18 06:15 Hct 41.0 % (34.0-46.0) 03/10/18 06:15 MCV 92.0 fL (80.0-100.0) 03/10/18 06:15 MCH 27.6 pg (25.0-35.0) 03/10/18 06:15 MCHC 30.0 g/dL (31.0-37.0) L 03/10/18 06:15 RDW 14.7 % (11.5-15.5) 03/10/18 06:15 Plt Count 402 k/uL (150-450) 03/10/18 06:15 Neutrophils % 72 % 03/10/18 06:15 Lymphocytes % 24 % 03/10/18 06:15 Monocytes % 3 % 03/10/18 06:15 Eosinophils % 1 % 03/10/18 06:15 Basophils % 0 % 03/10/18 06:15 Neutrophils # 6.1 k/uL (1.3-7.7) 03/10/18 06:15 Lymphocytes # 2.0 k/uL (1.0-4.8) 03/10/18 06:15 Monocytes # 0.2 k/uL (0-1.0) 03/10/18 06:15 Eosinophils # 0.0 k/uL (0-0.7) 03/10/18 06:15 Basophils # 0.0 k/uL (0-0.2) 03/10/18 06:15 Hypochromasia Slight 03/10/18 06:15 PT 9.8 sec (9.0-12.0) 03/06/18 13:54 INR 1.0 (<1.2) 03/06/18 13:54 APTT 22.2 sec (22.0-30.0) 03/06/18 13:54 Sodium 136 mmol/L (137-145) L 03/10/18 06:15 Potassium 4.3 mmol/L (3.5-5.1) 03/10/18 06:15 Chloride 104 mmol/L (98-107) 03/10/18 06:15 Carbon Dioxide 28 mmol/L (22-30) 03/10/18 06:15 Anion Gap 4 mmol/L 03/10/18 06:15 BUN 12 mg/dL (7-17) 03/10/18 06:15 Creatinine 0.90 mg/dL (0.52-1.04) 03/10/18 06:15 Est GFR (CKD-EPI)AfAm 82 (>60 ml/min/1.73 sqM) 03/10/18 06:15 Est GFR (CKD-EPI)NonAf 71 (>60 ml/min/1.73 sqM) 03/10/18 06:15 Glucose 154 mg/dL (74-99) H 03/10/18 06:15 Plasma Lactic Acid Matheus 1.4 mmol/L (0.7-2.0) 03/06/18 15:25 Calcium 9.0 mg/dL (8.4-10.2) 03/10/18 06:15 Magnesium 2.0 mg/dL (1.6-2.3) 03/06/18 13:54 Total Bilirubin 0.4 mg/dL (0.2-1.3) 03/06/18 13:54 AST 38 U/L (14-36) H 03/06/18 13:54 ALT 30 U/L (9-52) 03/06/18 13:54 Alkaline Phosphatase 46 U/L (38-126) 03/06/18 13:54 Total Protein 6.5 g/dL (6.3-8.2) 03/06/18 13:54 Albumin 3.1 g/dL (3.5-5.0) L 03/06/18 13:54 Fluid Source Bronchial Wash 03/09/18 12:00 Fluid Color Colorless 03/09/18 12:00 Fluid Appearance Clear 03/09/18 12:00 Fluid RBC 35 /uL 03/09/18 12:00 Fluid Nucleated Cells 140 /uL 03/09/18 12:00 Fluid Polynuclear WBCs 83 % 03/09/18 12:00 Fluid Mononuclear WBCs 15 % 03/09/18 12:00 Fluid Eosinophils 2 % 03/09/18 12:00 Microbiology 03/09/18 12:00 Bronchial Washings - Right Gram Stain - Preliminary 03/09/18 12:00 Bronchial Washings - Right Bronchial Washings Culture - Preliminary 03/09/18 12:00 Bronchial Washings - Right Fungal Culture - Preliminary 03/09/18 12:00 Bronchial Washings - Right Acid Fast Bacilli Culture - Preliminary 03/06/18 13:54 Blood Blood Culture - Preliminary No Growth after 72 hours Assessment and Plan (1) Multifocal pneumonia Narrative/Plan: 57 year old woman with a history of T-cell lymphoma relates that she's been ill for about a month. She's had some outpatient evaluation and was treated with several coursesof antibiotic therapy. She did have outpatient x-ray and then computed tomography scan which was markedly abnormal and consequently presents to Hospital. There is evidence of multi focal pneumonia. There is concerns to underlying infectious as well as none infectious etiologies of the current abnormalities. the patient had been on steroid therapy that has now been tapered. She was also treated with prophylactic medications including acyclovir and Bactrim but have stopped now several months ago. With this there is some risk of pneumocystis as well as other opportunistic pathogens. Antimicrobial therapy is directed at gram-negative organisms including Pseudomonas.intravenous trimethoprim sulfamethoxazole is requested, and with this the vancomycin may be discontinued. Multiple cultures are already in Process. Did have outpatient viral pcr swab which was negative for viral pathogens. There has been little change of her status as of 03/08/2018. The case is discussed with pulmonary and she has plan for bronchoscopy or further evaluation including opportunistic pathogens. Continue current antimicrobial therapy, which is currently including trimethoprim sulfamethoxazole for pneumocystis treatment. Continue her treatments with nebulizers and oxygen. She relates she still feels quite poorly. March 10 2018 she is status post bronchoscopy and is feeling somewhat better. She remains on oxygen therapy and multiple antimicrobials. Once data is available if pneumocystis was negative the IV Bactrim be discontinued. Case is discussed with pulmonology concerns to possibly underlying bronchiolitis obliterans and may need lung biopsy Current Visit: Yes Status: Acute Code(s): J18.9 - PNEUMONIA, UNSPECIFIED ORGANISM SNOMED Code(s): 568425239
--- NOTE | 2018-03-10 14:58 | P.PN ---
Subjective Progress Note Date: 03/10/18 Principal diagnosis: Acute hypoxic respiratory failure secondary to bilateral multilobar pneumonia. This is a very pleasant 57-year-old female patient who follows with Dr. Bauer as her primary care physician. She has a history of non-Hodgkin's lymphoma diagnosed in the neck region in November 2013. She completed chemotherapy in March 2014. She has also undergone bone marrow transplant 2. She has been followed at the [facility]. She states she has been in remission since that time. Her last PET scan done in this facility March 2014 showed no hypermetabolic uptake. She also states she had been on antifungals and prednisone until approximately November of this year. Approximately one month ago she developed shortness of breath, cough and congestion. She was seen by her PCP and placed on Levaquin 750 mg for 10 days. She had no real improvement and in follow-up was started on steroids. She continued to have significant cough and congestion. Chest x-ray revealed abnormalities and she had an outpatient CAT scan done on 2017. There was noted nonspecific multifocal coarse groundglass infiltrate suspicious for multifocal pneumonia. She did not hear back on these results. Her symptoms continued to worsen and she presented here to the emergency room yesterday for the same. Chest x-ray showed increasing multifocal patchy airspace disease. White count 20.4. Lactic 1.4. She's been initiated on vancomycin, Zosyn and Levaquin along with bronchodilators. She is seen today in consultation on the pediatric unit. She is awake and alert in no acute distress. She's been breathing slightly better today as compared to yesterday. He is maintaining O2 saturations in the low 90s on 2 L/m per nasal cannula. She's been afebrile. Hemodynamically stable. She has a loose nonproductive cough. Reevaluated today on 03/08/2018, patient is basically about the same. Continues to have shortness of breath, some cough, unable to clear much secretions. Patient remains on 3 L nasal cannula, labs from admission were reviewed including her leukocytosis with WBC count 20.4. Electrolytes and renal profile were noted to be normal. Patient remains on broad-spectrum antibiotics as per infectious disease on the case, however considering the patient overall clinical status and underlying relatively immunocompromised state with previous bone marrow transplant, I would recommend the bronchoscopy and bronchoalveolar lavage of both lungs. This will be done tomorrow. Patient was made aware of my plans, and she is agreeable to proceed with bronchoscopy and bronchoalveolar lavage. Patient was reevaluated on 03/09/2018, clinically about the same, underwent bronchoscopy and bronchoalveolar lavage, please refer to the full operative report. Patient is still on broad-spectrum antibiotics, however after the findings on the bronchoscopy, I'm more inclined to think that this is not a true infectious process, hence I will go ahead and add Solu-Medrol until the final report from the cultures come back. 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 WBC count is down to 12.2 hemoglobin is 11.3 left lites are normal renal profile is normal. The patient was seen again today 03/10/2018 in follow-up in the pediatric unit. She is currently sitting up in a chair at the bedside. She is awake and alert in no acute distress. She is still quite hypoxic requiring 8 L high flow nasal cannula to maintain O2 saturations in the 90s. Her chest x-ray reveals continued multilobar pneumonia with no significant improvement but no worse. She did undergo bronchoscopy with BAL yesterday and cultures are pending. Blood cultures reveal no growth. White count improved currently 8.5. Hemoglobin 12.3. Creatinine 0.9. She remains on IV Solu-Medrol and antibiotics in the form of Bactrim, Zosyn and Levaquin. Objective - Vital Signs Vital signs: Vital Signs Temp 98.1 F 03/10/18 11:54 Pulse 88 03/10/18 12:25 Resp 16 03/10/18 11:54 BP 99/65 03/10/18 11:54 Pulse Ox 95 03/10/18 11:54 Intake & Output 03/09/18 03/10/18 03/10/18 18:59 06:59 18:59 Intake Total 200 1380 Balance 200 1380 Intake: IV 200 Oral 1380 Other: # Voids 1 1 3 # Bowel Movements 2 - Exam GENERAL EXAM: Alert, active, comfortable in no apparent distress. HEAD: Normocephalic. EYES: Normal reaction of pupils, equal size. NOSE: Clear with pink turbinates. THROAT: No erythema or exudates. NECK: No masses, no JVD. CHEST: No chest wall deformity. LUNGS: Equal air entry with bilateral scattered rhonchi, wheeze. CVS: S1 and S2 normal with no audible murmur, regular rhythm. ABDOMEN: No hepatosplenomegaly, normal bowel sounds, no guarding or rigidity. SPINE: No scoliosis or deformity SKIN: No rashes CENTRAL NERVOUS SYSTEM: No focal deficits, tone is normal in all 4 extremities. EXTREMITIES: There is no peripheral edema. No clubbing, no cyanosis. Peripheral pulses are intact. - Labs CBC & Chem 7: 03/10/18 06:15 03/10/18 06:15 Labs: Abnormal Lab Results - Last 24 Hours (Table) 03/10/18 03/10/18 Range/Units 06:15 06:15 MCHC 30.0 L (31.0-37.0) g/dL Sodium 136 L (137-145) mmol/L Glucose 154 H (74-99) mg/dL Microbiology - Last 24 Hours (Table) 03/09/18 12:00 Gram Stain - Preliminary Bronchial Washings - Right Bronchial Washings Culture - Preliminary 03/09/18 12:00 Fungal Culture - Preliminary Bronchial Washings - Right 03/09/18 12:00 Acid Fast Bacilli Culture - Preliminary Bronchial Washings - Right 03/06/18 13:54 Blood Culture - Preliminary Blood No Growth after 72 hours Assessment and Plan Assessment: Impression: #1 Acute hypoxic respiratory failure secondary to bilateral multifocal pneumonia , suspect community-acquired in an immunocompromised patient. The patient did undergo bronchoscopy with BAL on 03/09/2018, cultures are pending. 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 #2 Leukocytosis secondary to above. #3 History of non-Hodgkin's lymphoma status post chemotherapy and bone marrow transplant 2. #4 Gastroesophageal reflux disease. Plan: The patient was seen and evaluated by Dr. Urbano. Chest x-ray and labs reviewed. Continue Bactrim, Zosyn and Levaquin. We'll continue with IV steroids and bronchodilators. We'll continue to follow and make further recommendations based on her clinical status. I, the cosigning physician, performed a history & physical examination of the patient. Lungs sounds with bilateral scattered rhonchi. Maintaining good O2 saturations in the 90s on 8 L/m per high flow nasal cannula. I discussed the assessment and plan of care with my nurse practitioner, Uzma Acosta. I attest to the above consultation as dictated by her.
[2018-03-10] MEDS: LEVOFLOXACIN 750 MG TAB PO SCH (15:52)
[2018-03-10] MEDS: ALPRAZolam 0.25 MG TAB PO PRN (17:32)
--- NOTE | 2018-03-10 22:53 | P.PN ---
Progress Note - Text Progress Note Date: 03/10/18 Date of service-03/10/2018 Presenting complaint Short of breath Interval history: Patient is status post treatment for non-Hodgkin's lymphoma in remission. Presented with shortness of breath. Computed tomography scan did show pulmonary fibrosis. Patient remains on broad-spectrum antiemetics. Status post bronchoscopy on February 19. No purulent secretions were noted. Patient remains hypoxic. Patient had some diarrhea yesterday which has been resolved. Sitting up on a chair. Using her IS. Review of systems: Was done for constitutional, cardiovascular, GI, pulmonary. relevant finding as above Current medications reviewed that included: Acyclovir, DuoNeb, Levaquin, IV Solu-Medrol, IV Zosyn, Requip, Bactrim On examination: VITAL SIGNS: 98.1, 93, 16, 99/65, 95% on 6 L GENERAL APPEARANCE: Sitting up in a chair, tired appearing. HEENT: Normal external appearance of nose and ear. Oral cavity normal EYES: Pupils equal. Conjunctiva normal. NECK: JVD not raised. Mass not palpable. RESPIRATORY: Respiratory effort increased, bilateral coarse crackles. CARDIOVASCULAR: First and second sounds normal. No edema. ABDOMEN: Soft. Liver and spleen not palpable. No tenderness. No mass palpable. PSYCHIATRY: Alert and oriented x3. Mood and affect normal. Investigations: Reviewed in the context of assessment and plan White count 8.5, potassium 4.3 Bronchial washings-virus profile was negative, fungal and AFB cultures are pending Assessment: -This is a patient who presents for shortness of breath, who is an immunosuppressant, cultures currently being treated for bilateral pneumonia. Bronchoscopy did not really show any infected secretions. Virus has been negative. If cultures remain negative then lung biopsy will be required. -Bilateral element of pulmonary fibrosis -GERD -Hyperlipidemia -Hypertension improved -Acute severe hypoxia dyspnea failure from underlying pneumonia/probably fibrosis slow to respond Plan: Care was discussed with patient at length. Also discussed Kathya from pulmonary to continue to Dr. Urbano about possible lung biopsy if nothing comes from the cultures. Meantime will change the Solu-Medrol to 40 every 8. Continue with broad-spectrum antibiotics.
[2018-03-11] MEDS: ALPRAZolam 0.25 MG TAB PO PRN ×2 (00:01→23:49)
[2018-03-11] MEDS: LACTATED RINGERS 1,000 ML IV SCH ×4 (05:01→21:17)
[2018-03-11] MEDS: PANTOPRAZOLE 40 MG TABLET PO SCH ×2 (06:31→16:49)
[2018-03-11 06:43] LABS: Calcium 8.9 mg/dL (8.4-10.2); Potassium 4.6 mmol/L (3.5-5.1)
[2018-03-11] MEDS: PIPERACILLIN-TAZOBACTAM 3.375 GM in DEXTROSE/WATER 1 50ML.BAG IVPB SCH ×2 (07:49→16:48)
[2018-03-11] MEDS: methylPREDNISolone SOD SUCCI 125 MG/2 ML VIAL IV SCH ×3 (08:11→23:49)
[2018-03-11] MEDS: IPRATROPIUM-ALBUTEROL 3 ML NEB INHALATION SCH ×4 (08:12→20:11)
[2018-03-11] MEDS: ACYCLOVIR 200 MG CAP PO SCH ×2 (09:16→21:15)
[2018-03-11] MEDS: URSODIOL 300 MG CAP PO SCH ×2 (09:17→21:15)
[2018-03-11] MEDS: SULFAMETHOX-TMP 80-16MG/ML 320 MG in DEXTROSE 5% IN WATER 500 ML IVPB SCH ×4 (09:17→22:02)
[2018-03-11] MEDS: ENOXAPARIN 40 MG/0.4 ML SYRINGE SQ SCH (09:17)
[2018-03-11] MEDS ORDERED: FUROSEMIDE 10 MG/ML 2 ML VIAL IV ONE (09:40)
--- NOTE | 2018-03-11 09:40 | P.PN ---
Subjective Progress Note Date: 03/11/18 Principal diagnosis: Acute hypoxic respiratory failure secondary to bilateral pneumonia. This is a very pleasant 57-year-old female patient who follows with Dr. Bauer as her primary care physician. She has a history of non-Hodgkin's lymphoma diagnosed in the neck region in November 2013. She completed chemotherapy in March 2014. She has also undergone bone marrow transplant 2. She has been followed at the [facility]. She states she has been in remission since that time. Her last PET scan done in this facility March 2014 showed no hypermetabolic uptake. She also states she had been on antifungals and prednisone until approximately November of this year. Approximately one month ago she developed shortness of breath, cough and congestion. She was seen by her PCP and placed on Levaquin 750 mg for 10 days. She had no real improvement and in follow-up was started on steroids. She continued to have significant cough and congestion. Chest x-ray revealed abnormalities and she had an outpatient CAT scan done on 2017. There was noted nonspecific multifocal coarse groundglass infiltrate suspicious for multifocal pneumonia. She did not hear back on these results. Her symptoms continued to worsen and she presented here to the emergency room yesterday for the same. Chest x-ray showed increasing multifocal patchy airspace disease. White count 20.4. Lactic 1.4. She's been initiated on vancomycin, Zosyn and Levaquin along with bronchodilators. She is seen today in consultation on the pediatric unit. She is awake and alert in no acute distress. She's been breathing slightly better today as compared to yesterday. He is maintaining O2 saturations in the low 90s on 2 L/m per nasal cannula. She's been afebrile. Hemodynamically stable. She has a loose nonproductive cough. Reevaluated today on 03/08/2018, patient is basically about the same. Continues to have shortness of breath, some cough, unable to clear much secretions. Patient remains on 3 L nasal cannula, labs from admission were reviewed including her leukocytosis with WBC count 20.4. Electrolytes and renal profile were noted to be normal. Patient remains on broad-spectrum antibiotics as per infectious disease on the case, however considering the patient overall clinical status and underlying relatively immunocompromised state with previous bone marrow transplant, I would recommend the bronchoscopy and bronchoalveolar lavage of both lungs. This will be done tomorrow. Patient was made aware of my plans, and she is agreeable to proceed with bronchoscopy and bronchoalveolar lavage. Patient was reevaluated on 03/09/2018, clinically about the same, underwent bronchoscopy and bronchoalveolar lavage, please refer to the full operative report. Patient is still on broad-spectrum antibiotics, however after the findings on the bronchoscopy, I'm more inclined to think that this is not a true infectious process, hence I will go ahead and add Solu-Medrol until the final report from the cultures come back. 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 WBC count is down to 12.2 hemoglobin is 11.3 left lites are normal renal profile is normal. Patient was reevaluated today on 03/11/2018, feels better today, breathing a lot easier, her FiO2 is down to 4 L nasal cannula, and she is saturating in the high 90s. Less cough, less shortness of breath overall, no chest pain. No fever no chills no hemoptysis. No nausea no vomiting no abdominal pain. Remains hemodynamically stable, and her O2 sat last night was 99% on 5 L nasal cannula. Presently on 4 L. Objective - Vital Signs Vital signs: Vital Signs Temp 97.1 F L 03/11/18 07:30 Pulse 91 03/11/18 08:25 Resp 20 03/11/18 07:30 BP 95/60 03/11/18 08:37 Pulse Ox 99 03/11/18 08:15 Intake & Output 03/10/18 03/11/18 03/11/18 18:59 06:59 18:59 Other: # Voids 3 1 - Exam Physical Exam: Revealed a 57-year-old female not in distress, however, on high flow nasal cannula post bronchoscopy. Head: Atraumatic, normocephalic. HEENT:[Neck is supple.] [No neck masses.] [No thyromegaly.] [No JVD.] Chest: [Crackles and rhonchi persist bilaterally especially at the bases.] Cardiac Exam: [Normal S1 and S2, no S3 gallop, no murmur.] Abdomen: [Soft, nontender, no megaly, no rebound, no guarding, normal bowel sounds.] Extremities: [No clubbing, no edema, no cyanosis.] Neurological Exam: [No focal neurologic deficit. Lymphatics: No lymphadenopathy. Psychiatric: Normal mood affect and mental status examination.] - Labs CBC & Chem 7: 03/10/18 06:15 03/11/18 06:09 Labs: Abnormal Lab Results - Last 24 Hours (Table) 03/10/18 03/11/18 Range/Units 06:15 06:09 MCHC 30.0 L (31.0-37.0) g/dL Glucose 150 H (74-99) mg/dL Microbiology - Last 24 Hours (Table) 03/09/18 12:00 Acid Fast Bacilli Smear - Final Bronchial Washings - Right Acid Fast Bacilli Culture - Preliminary 03/06/18 13:54 Blood Culture - Preliminary Blood No Growth after 96 hours 03/09/18 12:00 Gram Stain - Preliminary Bronchial Washings - Right Bronchial Washings Culture - Preliminary Assessment and Plan Assessment: #1 Acute hypoxic respiratory failure secondary to bilateral multifocal pneumonia , suspect community-acquired in an immunocompromised patient. #2 Leukocytosis secondary to above. #3 History of non-Hodgkin's lymphoma status post chemotherapy and bone marrow transplant 2. #4 Gastroesophageal reflux disease. 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 Lavage of the left upper lobe and lingula was done. #6 status post bronchoscopy and bronchoalveolar lavage of the right middle lobe and right upper lobe. Postoperative day #0. Recommendation: Continue present course of antibiotics, Solu-Medrol, continue bronchodilators, will follow closely, await report from the bronchoalveolar lavage which was sent today for different diagnostic studies. Time with Patient: Less than 30
--- NOTE | 2018-03-11 16:23 | P.PN ---
Progress Note - Text Progress Note Date: 03/11/18 Presenting complaint Short of breath Interval history: Patient is status post treatment for non-Hodgkin's lymphoma in remission. Presented with shortness of breath. Computed tomography scan did show pulmonary fibrosis. Patient remains on broad-spectrum antibiotics. Status post bronchoscopy on February 19. No purulent secretions were noted. Today-feeling better. Eating a bit better. On 4 L of nasal cannula. No diarrhea. Minimal cough. No sputum. Review of systems: Was done for constitutional, cardiovascular, GI, pulmonary. relevant finding as above Current medications reviewed that included: Acyclovir, DuoNeb, Levaquin, IV Solu-Medrol 60 mg every 6, IV Zosyn, Requip, Bactrim On examination: VITAL SIGNS: 97.7, 86, 18, 93/51, 96% on 4 L GENERAL APPEARANCE: Sitting up in a chair, looks a bit better HEENT: Normal external appearance of nose and ear. Oral cavity normal EYES: Pupils equal. Conjunctiva normal. NECK: JVD not raised. Mass not palpable. RESPIRATORY: Respiratory effort increased, decreased crackles CARDIOVASCULAR: First and second sounds normal. No edema. ABDOMEN: Soft. Liver and spleen not palpable. No tenderness. No mass palpable. PSYCHIATRY: Alert and oriented x3. Mood and affect normal. Investigations: Reviewed in the context of assessment and plan Pressure 4.6 glucose 150 Bronchial washings-virus profile was negative, fungal and AFB cultures are pending Assessment: -This is a patient who presents for shortness of breath, who is an immunosuppressant, cultures currently being treated for bilateral pneumonia. Bronchoscopy did not really show any infected secretions. Virus has been negative. If cultures remain negative then lung biopsy will be required. -Bilateral element of pulmonary fibrosis -GERD -Hyperlipidemia -Hypertension improved -Acute severe hypoxia dyspnea failure from underlying pneumonia/probably fibrosis , slowly improving. Down to 4 L nasal cannula. Plan: Spoke to patient's doctor Dr. Marcus Galdamez and he knows to [place]. Did give him an update about the patient's case. And that she is doing better today. Medications and clinical findings were discussed. We'll cut back on Solu- Medrol to 40 mg every 8 with antibiotics and to continue..
[2018-03-11] MEDS: LEVOFLOXACIN 750 MG TAB PO SCH (16:48)
[2018-03-12] MEDS: PIPERACILLIN-TAZOBACTAM 3.375 GM in DEXTROSE/WATER 1 50ML.BAG IVPB SCH ×3 (00:46→16:01)
[2018-03-12] MEDS: PANTOPRAZOLE 40 MG TABLET PO SCH ×2 (06:43→16:01)
--- NOTE | 2018-03-12 08:14 | XR ---
EXAMINATION TYPE: XR chest 1V portable DATE OF EXAM: 03/12/2018 Comparison: 03/10/2018 Clinical History: 57 year-old female follow-up pneumonia Findings: Heart is normal size. Aorta within normal limits. Multifocal patchy airspace opacities persist greate st within the right midlung and left base. Minimal improvement in interstitial infiltrates left midlu ng and right base. Possible trace left effusion remains. Impression: 50 multifocal airspace disease with minimal interval improvement.
[2018-03-12] MEDS: ENOXAPARIN 40 MG/0.4 ML SYRINGE SQ SCH (08:47)
[2018-03-12] MEDS: URSODIOL 300 MG CAP PO SCH ×2 (08:47→20:12)
[2018-03-12] MEDS: ACYCLOVIR 200 MG CAP PO SCH ×2 (08:47→20:12)
[2018-03-12] MEDS: methylPREDNISolone SOD SUCCI 125 MG/2 ML VIAL IV SCH ×2 (08:48→16:00)
[2018-03-12] MEDS: LACTATED RINGERS 1,000 ML IV SCH ×2 (08:48→09:47)
[2018-03-12] MEDS: IPRATROPIUM-ALBUTEROL 3 ML NEB INHALATION SCH ×4 (08:52→20:05)
[2018-03-12] MEDS: SULFAMETHOX-TMP 80-16MG/ML 320 MG in DEXTROSE 5% IN WATER 500 ML IVPB SCH ×4 (09:20→21:09)
[2018-03-12 11:01] LABS: Calcium 8.9 mg/dL (8.4-10.2)
--- NOTE | 2018-03-12 12:07 | P.PN ---
Subjective Progress Note Date: 03/12/18 Principal diagnosis: Acute hypoxic respiratory failure secondary to bilateral pneumonia. This is a very pleasant 57-year-old female patient who follows with Dr. Bauer as her primary care physician. She has a history of non-Hodgkin's lymphoma diagnosed in the neck region in November 2013. She completed chemotherapy in March 2014. She has also undergone bone marrow transplant 2. She has been followed at the [facility]. She states she has been in remission since that time. Her last PET scan done in this facility March 2014 showed no hypermetabolic uptake. She also states she had been on antifungals and prednisone until approximately November of this year. Approximately one month ago she developed shortness of breath, cough and congestion. She was seen by her PCP and placed on Levaquin 750 mg for 10 days. She had no real improvement and in follow-up was started on steroids. She continued to have significant cough and congestion. Chest x-ray revealed abnormalities and she had an outpatient CAT scan done on 2017. There was noted nonspecific multifocal coarse groundglass infiltrate suspicious for multifocal pneumonia. She did not hear back on these results. Her symptoms continued to worsen and she presented here to the emergency room yesterday for the same. Chest x-ray showed increasing multifocal patchy airspace disease. White count 20.4. Lactic 1.4. She's been initiated on vancomycin, Zosyn and Levaquin along with bronchodilators. She is seen today in consultation on the pediatric unit. She is awake and alert in no acute distress. She's been breathing slightly better today as compared to yesterday. He is maintaining O2 saturations in the low 90s on 2 L/m per nasal cannula. She's been afebrile. Hemodynamically stable. She has a loose nonproductive cough. Reevaluated today on 03/08/2018, patient is basically about the same. Continues to have shortness of breath, some cough, unable to clear much secretions. Patient remains on 3 L nasal cannula, labs from admission were reviewed including her leukocytosis with WBC count 20.4. Electrolytes and renal profile were noted to be normal. Patient remains on broad-spectrum antibiotics as per infectious disease on the case, however considering the patient overall clinical status and underlying relatively immunocompromised state with previous bone marrow transplant, I would recommend the bronchoscopy and bronchoalveolar lavage of both lungs. This will be done tomorrow. Patient was made aware of my plans, and she is agreeable to proceed with bronchoscopy and bronchoalveolar lavage. Patient was reevaluated on 03/09/2018, clinically about the same, underwent bronchoscopy and bronchoalveolar lavage, please refer to the full operative report. Patient is still on broad-spectrum antibiotics, however after the findings on the bronchoscopy, I'm more inclined to think that this is not a true infectious process, hence I will go ahead and add Solu-Medrol until the final report from the cultures come back. 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 WBC count is down to 12.2 hemoglobin is 11.3 left lites are normal renal profile is normal. Patient was reevaluated today on 03/11/2018, feels better today, breathing a lot easier, her FiO2 is down to 4 L nasal cannula, and she is saturating in the high 90s. Less cough, less shortness of breath overall, no chest pain. No fever no chills no hemoptysis. No nausea no vomiting no abdominal pain. Remains hemodynamically stable, and her O2 sat last night was 99% on 5 L nasal cannula. Presently on 4 L. Reevaluated today on 03/12/2018, continues to feel better clinically, chest x-ray is basically about the same with very minimal improvement if any. Cultures remain negative so far. Patient is saturating in the high 90s on 4 L nasal cannula. Remains on broad-spectrum antibiotics, bronchodilators, and steroids. Objective - Vital Signs Vital signs: Vital Signs Temp 97.9 F 03/12/18 09:07 Pulse 95 03/12/18 09:46 Resp 18 03/12/18 09:46 BP 105/63 03/12/18 09:07 Pulse Ox 91 L 03/12/18 09:46 Intake & Output 03/11/18 03/12/18 03/12/18 18:59 06:59 18:59 Intake Total 200 Balance 200 Weight 65.771 kg Intake: Oral 200 Other: # Voids 1 1 - Exam Physical Exam: Revealed a 57-year-old female not in distress, however, on 4 L nasal cannula Head: Atraumatic, normocephalic. HEENT:[Neck is supple.] [No neck masses.] [No thyromegaly.] [No JVD.] Chest: [Diminished breath sounds at the bases, no rhonchi and no wheezes..] Cardiac Exam: [Normal S1 and S2, no S3 gallop, no murmur.] Abdomen: [Soft, nontender, no megaly, no rebound, no guarding, normal bowel sounds.] Extremities: [No clubbing, no edema, no cyanosis.] Neurological Exam: [No focal neurologic deficit. Lymphatics: No lymphadenopathy. Psychiatric: Normal mood affect and mental status examination.] - Labs CBC & Chem 7: 03/10/18 06:15 03/12/18 10:33 Labs: Abnormal Lab Results - Last 24 Hours (Table) 03/12/18 Range/Units 10:33 BUN 21 H (7-17) mg/dL Glucose 157 H (74-99) mg/dL Microbiology - Last 24 Hours (Table) 03/09/18 12:00 Gram Stain - Final Bronchial Washings - Right Bronchial Washings Culture - Final 03/06/18 13:54 Blood Culture - Preliminary Blood No Growth after 120 hours Assessment and Plan Assessment: #1 Acute hypoxic respiratory failure secondary to bilateral multifocal pneumonia , suspect community-acquired in an immunocompromised patient. #2 Leukocytosis secondary to above. Resolved. #3 History of non-Hodgkin's lymphoma status post chemotherapy and bone marrow transplant 2. #4 Gastroesophageal reflux disease. 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 Lavage of the left upper lobe and lingula was done. #6 status post bronchoscopy and bronchoalveolar lavage of the right middle lobe and right upper lobe. Cultures are so far nondiagnostic. Recommendation: Continue present course of antibiotics, Solu-Medrol, continue bronchodilators, will follow closely, consider discharge planning sometime early next week. Time with Patient: Less than 30
[2018-03-12] MEDS: LEVOFLOXACIN 750 MG TAB PO SCH (16:00)
--- NOTE | 2018-03-12 22:00 | P.PN ---
Progress Note - Text Progress Note Date: 03/12/18 Presenting complaint Short of breath Interval history: Patient is status post treatment for non-Hodgkin's lymphoma in remission. Presented with shortness of breath. Computed tomography scan did show pulmonary fibrosis. Patient remains on broad-spectrum antibiotics. Status post bronchoscopy on February 19. No purulent secretions were noted. Today-tolerating a diet. Sitting up in a chair. at the bedside. On 4 L of nasal cannula. No fever or chills. Review of systems: Was done for constitutional, cardiovascular, GI, pulmonary. relevant finding as above Current medications reviewed that included: Acyclovir, DuoNeb, Levaquin, IV Solu-Medrol 60 mg every 6, IV Zosyn, Requip, Bactrim On examination: VITAL SIGNS: 97.9, 87, 18, 105/63, 91% on 4 L GENERAL APPEARANCE: Sitting up in a chair, heart rate HEENT: Normal external appearance of nose and ear. Oral cavity normal EYES: Pupils equal. Conjunctiva normal. NECK: JVD not raised. Mass not palpable. RESPIRATORY: Respiratory effort increased, decreased crackles CARDIOVASCULAR: First and second sounds normal. No edema. ABDOMEN: Soft. Liver and spleen not palpable. No tenderness. No mass palpable. PSYCHIATRY: Alert and oriented x3. Mood and affect normal. Investigations: Reviewed in the context of assessment and plan Potassium 4, BUN 21 Bronchial washings-virus profile was negative, fungal and AFB cultures are pending Assessment: -This is a patient who presents for shortness of breath, who is an immunosuppressant, cultures currently being treated for bilateral pneumonia. Bronchoscopy did not really show any infected secretions. Virus has been negative. If cultures remain negative then lung biopsy will be required. -Bilateral element of pulmonary fibrosis -GERD -Hyperlipidemia -Hypertension improved -Acute severe hypoxia dyspnea failure from underlying pneumonia/probably fibrosis , slowly improving. Down to 4 L nasal cannula. Plan: Continue current medication treatment plan. Antibiotics are to continue. Care was discussed with the patient. Followed by pulmonary. I still feel a lung biopsy may be beneficial if a pulmonary status can tolerate that.
[2018-03-13] MEDS: PIPERACILLIN-TAZOBACTAM 3.375 GM in DEXTROSE/WATER 1 50ML.BAG IVPB SCH ×4 (00:27→23:59)
[2018-03-13] MEDS: methylPREDNISolone SOD SUCCI 125 MG/2 ML VIAL IV SCH ×4 (00:27→23:59)
[2018-03-13] MEDS: LACTATED RINGERS 1,000 ML IV SCH (07:21)
[2018-03-13] MEDS: IPRATROPIUM-ALBUTEROL 3 ML NEB INHALATION SCH ×4 (08:03→19:57)
[2018-03-13] MEDS: URSODIOL 300 MG CAP PO SCH ×2 (08:32→21:23)
[2018-03-13] MEDS: ENOXAPARIN 40 MG/0.4 ML SYRINGE SQ SCH (08:32)
[2018-03-13] MEDS: PANTOPRAZOLE 40 MG TABLET PO SCH ×2 (08:32→18:18)
[2018-03-13] MEDS: ACYCLOVIR 200 MG CAP PO SCH ×2 (08:32→21:23)
[2018-03-13] MEDS: SULFAMETHOX-TMP 80-16MG/ML 320 MG in DEXTROSE 5% IN WATER 500 ML IVPB SCH ×4 (08:32→21:23)
--- NOTE | 2018-03-13 11:36 | P.PN ---
Subjective Progress Note Date: 03/13/18 Principal diagnosis: Acute hypoxic respiratory failure secondary to bilateral pneumonia. This is a very pleasant 57-year-old female patient who follows with Dr. Bauer as her primary care physician. She has a history of non-Hodgkin's lymphoma diagnosed in the neck region in November 2013. She completed chemotherapy in March 2014. She has also undergone bone marrow transplant 2. She has been followed at the [facility]. She states she has been in remission since that time. Her last PET scan done in this facility March 2014 showed no hypermetabolic uptake. She also states she had been on antifungals and prednisone until approximately November of this year. Approximately one month ago she developed shortness of breath, cough and congestion. She was seen by her PCP and placed on Levaquin 750 mg for 10 days. She had no real improvement and in follow-up was started on steroids. She continued to have significant cough and congestion. Chest x-ray revealed abnormalities and she had an outpatient CAT scan done on 2017. There was noted nonspecific multifocal coarse groundglass infiltrate suspicious for multifocal pneumonia. She did not hear back on these results. Her symptoms continued to worsen and she presented here to the emergency room yesterday for the same. Chest x-ray showed increasing multifocal patchy airspace disease. White count 20.4. Lactic 1.4. She's been initiated on vancomycin, Zosyn and Levaquin along with bronchodilators. She is seen today in consultation on the pediatric unit. She is awake and alert in no acute distress. She's been breathing slightly better today as compared to yesterday. He is maintaining O2 saturations in the low 90s on 2 L/m per nasal cannula. She's been afebrile. Hemodynamically stable. She has a loose nonproductive cough. Reevaluated today on 03/08/2018, patient is basically about the same. Continues to have shortness of breath, some cough, unable to clear much secretions. Patient remains on 3 L nasal cannula, labs from admission were reviewed including her leukocytosis with WBC count 20.4. Electrolytes and renal profile were noted to be normal. Patient remains on broad-spectrum antibiotics as per infectious disease on the case, however considering the patient overall clinical status and underlying relatively immunocompromised state with previous bone marrow transplant, I would recommend the bronchoscopy and bronchoalveolar lavage of both lungs. This will be done tomorrow. Patient was made aware of my plans, and she is agreeable to proceed with bronchoscopy and bronchoalveolar lavage. Patient was reevaluated on 03/09/2018, clinically about the same, underwent bronchoscopy and bronchoalveolar lavage, please refer to the full operative report. Patient is still on broad-spectrum antibiotics, however after the findings on the bronchoscopy, I'm more inclined to think that this is not a true infectious process, hence I will go ahead and add Solu-Medrol until the final report from the cultures come back. 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 WBC count is down to 12.2 hemoglobin is 11.3 left lites are normal renal profile is normal. Patient was reevaluated today on 03/11/2018, feels better today, breathing a lot easier, her FiO2 is down to 4 L nasal cannula, and she is saturating in the high 90s. Less cough, less shortness of breath overall, no chest pain. No fever no chills no hemoptysis. No nausea no vomiting no abdominal pain. Remains hemodynamically stable, and her O2 sat last night was 99% on 5 L nasal cannula. Presently on 4 L. Reevaluated today on 03/12/2018, continues to feel better clinically, chest x-ray is basically about the same with very minimal improvement if any. Cultures remain negative so far. Patient is saturating in the high 90s on 4 L nasal cannula. Remains on broad-spectrum antibiotics, bronchodilators, and steroids. Evaluated on 03/13/2018, patient is feeling much better, breathing a lot easier, she is down to 3 L nasal cannula, and her O2 saturation is 95%. Will likely the patient is feeling great, hence I'm recommending a follow-up chest x-ray in a.m. Cultures remain negative. Labs from today were all reviewed. Objective - Vital Signs Vital signs: Vital Signs Temp 98.0 F 03/13/18 07:30 Pulse 88 03/13/18 08:03 Resp 18 03/13/18 08:00 BP 94/52 03/13/18 07:30 Pulse Ox 93 L 03/13/18 09:20 Intake & Output 03/12/18 03/13/18 03/13/18 18:59 06:59 18:59 Intake Total 600 Balance 600 Weight 65.771 kg Intake: Oral 600 Other: # Voids 2 2 - Exam Physical Exam: Revealed a 57-year-old female not in distress, however, on 4 L nasal cannula Head: Atraumatic, normocephalic. HEENT:[Neck is supple.] [No neck masses.] [No thyromegaly.] [No JVD.] Chest: [Diminished breath sounds at the bases, no rhonchi and no wheezes..] Cardiac Exam: [Normal S1 and S2, no S3 gallop, no murmur.] Abdomen: [Soft, nontender, no megaly, no rebound, no guarding, normal bowel sounds.] Extremities: [No clubbing, no edema, no cyanosis.] Neurological Exam: [No focal neurologic deficit. Lymphatics: No lymphadenopathy. Psychiatric: Normal mood affect and mental status examination.] - Labs CBC & Chem 7: 03/10/18 06:15 03/12/18 10:33 Labs: Microbiology - Last 24 Hours (Table) 03/06/18 13:54 Blood Culture - Final Blood No Growth after 144 hours 03/09/18 12:00 Gram Stain - Final Bronchial Washings - Right Bronchial Washings Culture - Final Assessment and Plan Assessment: #1 Acute hypoxic respiratory failure secondary to bilateral multifocal pneumonia , suspect community-acquired in an immunocompromised patient. #2 Leukocytosis secondary to above. Resolved. #3 History of non-Hodgkin's lymphoma status post chemotherapy and bone marrow transplant 2. #4 Gastroesophageal reflux disease. 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 Lavage of the left upper lobe and lingula was done. #6 status post bronchoscopy and bronchoalveolar lavage of the right middle lobe and right upper lobe. Cultures are so far nondiagnostic. Recommendation: Continue present course of antibiotics, Solu-Medrol, continue bronchodilators, will follow closely, consider discharge planning sometime early next week. We will order repeat chest x-ray in the next 24 hours. Time with Patient: Less than 30
[2018-03-13] MEDS: LEVOFLOXACIN 750 MG TAB PO SCH (16:38)
--- NOTE | 2018-03-13 22:05 | PN ---
PROGRESS NOTE DATE OF SERVICE: March 13, 2018. PRESENTING COMPLAINT: Short of breath. INTERVAL HISTORY: The patient is status post treatment for non-Hodgkin's lymphoma in remission for the last 3 years. Has presented with shortness of breath. The patient is on broad- spectrum antibiotics. Continues to feel better. On 4 L oxygen. Appetite is good. The patient is status post bronchoscopy. No sputum production. No fever. No chills. REVIEW OF SYSTEMS: Done for constitutional, cardiovascular, GI, pulmonary and relevant findings as above. CURRENT MEDICATIONS: Reviewed that include acyclovir, DuoNeb, Levaquin, IV Solu-Medrol 60 mg every 8 hours, IV Zosyn, Requip and Bactrim. EXAMINATION: VITAL SIGNS: Temperature 98.3, pulse 100, respiratory rate 19, blood pressure 105/60, pulse ox 96 percent on 3 L. GENERAL APPEARANCE: Sitting up in a chair, awake. EYES: Pupils equal. Conjunctivae normal. HEENT: External appearance of nose and ears normal. Oral cavity normal. NECK: JVD not raised. Mass not palpable. RESPIRATORY effort increased. LUNGS improved air entry. Some crackles. CARDIOVASCULAR: First and second sounds normal. No edema. ABDOMEN: Soft, nontender. Liver and spleen not palpable. PSYCHIATRY: Alert and oriented x3. Mood and affect normal. INVESTIGATIONS: Potassium 4.0, BUN 21, creatinine 0.91. Fungal cultures are pending. AFB smear negative for AFB, Gram stain was negative. ASSESSMENT: 1. This is a patient presented short of breath, who is immunosuppressed, being treated empirically for bilateral pneumonia, strong suspicion for BOOP, empirically also being treated for PCP. All other workup has been coming back negative. 2. Possible bilateral pulmonary fibrosis. 3. Gastroesophageal reflux disease. 4. Hyperlipidemia. 5. Acute severe hypoxic respiratory failure from underlying pneumonia improved/pulmonary fibrosis, currently down to 4 L nasal cannula. PLAN: Care was discussed with the patient and Dr. Urbano. Continue current medication and treatment plan. Await results for PCP. The patient may need a lung biopsy as an outpatient. MMODL / IJN: [id number] /
[2018-03-14] MEDS: PANTOPRAZOLE 40 MG TABLET PO SCH (06:33)
[2018-03-14] MEDS: LACTATED RINGERS 1,000 ML IV SCH (07:33)
[2018-03-14] MEDS: methylPREDNISolone SOD SUCCI 125 MG/2 ML VIAL IV SCH ×2 (07:45→15:50)
[2018-03-14] MEDS: PIPERACILLIN-TAZOBACTAM 3.375 GM in DEXTROSE/WATER 1 50ML.BAG IVPB SCH (07:57)
[2018-03-14] MEDS: IPRATROPIUM-ALBUTEROL 3 ML NEB INHALATION SCH ×3 (08:50→16:34)
[2018-03-14] MEDS: URSODIOL 300 MG CAP PO SCH (09:00)
[2018-03-14] MEDS: SULFAMETHOX-TMP 80-16MG/ML 320 MG in DEXTROSE 5% IN WATER 500 ML IVPB SCH ×2 (09:00)
[2018-03-14] MEDS: ENOXAPARIN 40 MG/0.4 ML SYRINGE SQ SCH (09:00)
[2018-03-14] MEDS: ACYCLOVIR 200 MG CAP PO SCH (09:00)
--- NOTE | 2018-03-14 11:13 | XR ---
EXAMINATION TYPE: XR chest 2V DATE OF EXAM: 03/14/2018 COMPARISON: 03/12/2018 TECHNIQUE: PA and lateral views submitted. HISTORY: Abnormal x-ray FINDINGS: Heart is normal size. Aorta within normal limits. Multifocal patchy airspace opacities persist greate st within the right midlung and left base. Minimal improvement in interstitial infiltrates left midlu ng and right base. Possible trace left effusion remains. IMPRESSION: 1. Stable bilateral airspace disease demonstrating no significant interval change.
--- NOTE | 2018-03-14 12:25 | P.PN ---
Subjective Progress Note Date: 03/14/18 Principal diagnosis: Pneumonia Progress note dated 03/14/2018 57-year-old female with a history of hypoxemic respiratory failure secondary to bilateral pneumonia. The patient did undergo a bronchoscopy recently with my partner. The patient likely has some underlying COPD from previous tobacco use. 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 So far, bronchoscopic evaluation is negative. The patient is doing well and possibly could be discharged today. She may have to go home on oxygen therapy at rest or with exertion or both or neither. She should follow-up with my partner just to make sure the chest x-ray clears. Today's chest x-ray shows minimal change. Slightly better. Not much. Clinically she is doing well. Sitting up in bed. Objective - Vital Signs Vital signs: Vital Signs Temp 97.9 F 03/14/18 08:08 Pulse 103 H 03/14/18 10:41 Resp 24 03/14/18 10:41 BP 106/65 03/14/18 08:08 Pulse Ox 89 L 03/14/18 10:41 Intake & Output 03/13/18 03/14/18 03/14/18 18:59 06:59 18:59 Intake Total 400 Balance 400 Intake: Oral 400 Other: # Voids 1 1 - Exam No acute distress, oriented 3. Nasal O2 in place. HEENT examination is grossly unremarkable. Mucous membranes are moist. No oral lesions. Neck supple. Full range of motion. No adenopathy thyromegaly or neck vein distention. Cardiovascular examination reveals regular rhythm rate. S1-S2 normal. No S3 or S4. No discernible murmur noted. Lungs reveal mostly clear breath sounds. A few scattered rhonchi and crackles. No wheezes. Breath sounds equal bilaterally. Her rather unimpressive exam.. Abdomen soft bowel sounds are heard. No masses or tenderness. Extremities are intact. No cyanosis clubbing or edema. Skin is without rash or lesion. Neurologic examination is brief but nonfocal. - Labs CBC & Chem 7: 03/10/18 06:15 03/12/18 10:33 Assessment and Plan Assessment: Assessment Acute hypoxemic respiratory failure, secondary to bilateral multifocal pneumonia History of non-Hodgkin's lymphoma, status post chemotherapy and bone marrow transplant 2 Gastroesophageal reflux disease. Possible bronchiolitis obliterans/organizing pneumonia Assessment was bronchoscopy with BAL Plan: Plan dated 03/14/2018 From the pulmonary perspective, the patient can be discharged home. We'll determine whether or not the patient needs oxygen therapy post discharge. The check a room air resting saturation saturation with exertion on room air. She may need oxygen for short period of time. Chest x-ray today shows no change. She'll need a follow-up with my partner. There has been no recent laboratory data. Chest x-rays reviewed. Medications are reviewed. Prognosis is guarded. Microbiology is currently pending or negative. Time with Patient: Less than 30
[2018-03-14 15:41] VITALS: BP 107/64; TEMP 98
[2018-03-14] MEDS: LEVOFLOXACIN 750 MG TAB PO SCH (15:52)
[2018-03-14 15:59] VITALS: RESP 20
[2018-03-14 16:36] VITALS: PULSE 84
--- NOTE | 2018-03-16 05:05 | DS ---
DISCHARGE SUMMARY DATE OF ADMISSION: 03/06/2018 DATE OF DISCHARGE: 03/14/2018 FINAL DIAGNOSES: 1. 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 2. Bilateral pulmonary fibrosis. 3. Gastroesophageal reflux disease. 4. Hyperlipidemia. 5. Acute severe hypoxic respiratory failure, present on admission. HOSPITAL COURSE: This very pleasant lady of Dr. Bauer was diagnosed with non-Hodgkin's lymphoma and did get treatment for the same and followed in [place]. The patient has been cleared for 3 years. The patient has been recently weaned off prednisone, antifungals. For about a month the patient is being treated for outpatient pneumonia, but continued to get worse. She was treated with Levaquin. When patient presented, she was severely hypoxic, tired and run down. The patient did undergo bronchoscopy that showed normal sonny was empirically treated for PCP that came back to be negative. Acid-fast baseline cultures were pending. Fungal culture final was also pending. The patient from high-flow oxygen did much better by the time of discharge. The patient will be discharged home on 3 L of oxygen. On examination, basal fine crackles. Additionally, patient did have a high-resolution CT of the chest that showed probably pulmonary fibrosis. The patient is felt to have possible underlying BOOP as discussed with Dr. Urbano. Of course, pneumonia was in differential. workup otherwise came back negative. The patient is tolerating a diet. Care was discussed in detail with the patient. The patient may need a biopsy as an outpatient. Also spoke to Dr. Marcus Barrera, the patient's telephone ad taker out of [place]. CONSULTATIONS: Dr. Urbano from Pulmonary and Dr. Guadarrama on date of discharge; Dr. Crawford from Infectious Disease. Discussion and discharge planning more than 35 minutes. DISCHARGE MEDICATIONS: 1. Prilosec 20 mg b.i.d. 2. Ursodiol 300 mg p.o. b.i.d. 3. Xanax 0.5 p.o. daily. 4. Vitamin D2, 1000 units p.o. daily. 5. Requip 1 mg p.o. at bedtime. 6. Acyclovir 400 mg p.o. b.i.d. 7. DuoNeb t.i.d. 8. Levaquin 750 mg daily for 7 days. 9. Prednisone 40 mg a day. Follow up with Dr. Marcus Barrera in 1 week. Follow up with Dr. Urbano on 03/21/2018. Follow up with Dr. Crawford in 2 weeks. Follow up with Dr. Bauer in 1 week. Home oxygen 3 L. MMODL / IJN: [id number] /
== END 2018-03-14 17:45 | disposition home or self-care (01) | DRG 166 ==
LOC: EC 13:17 → 6PED 15:39
PROVIDERS: ADMIT Hospitalist; ATTEND Hospitalist
PROC: 0B9C8ZX Drainage of Right Upper Lung Lobe, Via Natural or Artificial Opening Endoscopic, Diagnostic (ICD-10-PCS; 2018-03-09)
PROC: 0B9D8ZX Drainage of Right Middle Lung Lobe, Via Natural or Artificial Opening Endoscopic, Diagnostic (ICD-10-PCS; principal; 2018-03-09 08:00)
DX: J84.89 Other specified interstitial pulmonary diseases (principal); J96.01 Acute respiratory failure with hypoxia; Z94.81 Bone marrow transplant status; J44.0 Chronic obstructive pulmonary disease with (acute) lower respiratory infection; E78.5 Hyperlipidemia, unspecified; J44.9 Chronic obstructive pulmonary disease, unspecified; K21.9 Gastro-esophageal reflux disease without esophagitis; G25.81 Restless legs syndrome; I10 Essential (primary) hypertension; J84.10 Pulmonary fibrosis, unspecified; T38.0X5A Adverse effect of glucocorticoids and synthetic analogues, initial encounter; D72.829 Elevated white blood cell count, unspecified; Z85.72 Personal history of non-Hodgkin lymphomas; Z87.891 Personal history of nicotine dependence; Z92.21 Personal history of antineoplastic chemotherapy; Z79.52 Long term (current) use of systemic steroids; Z79.899 Other long term (current) drug therapy; Z82.49 Family history of ischemic heart disease and other diseases of the circulatory system; Z79.83 Long term (current) use of bisphosphonates
CPT/HCPCS: 31624; 36415; 71045; 71046; 71250; 80048; 80053; 83605; 83735; 85025; 85610; 85730; 87040; 87070; 87102; 87116; 87205; 87206; 87252; 87299; 87324; 87496; 87498; 87502; 87529; 87634; 87798; 88108; 88305; 88312; 89050; 93005; 94640; 94760; 96365; 99285

== ENCOUNTER → 2018-03-21 | Outpatient (CLI) | payer OTHER ==
--- NOTE | 2018-03-21 16:28 | XR ---
EXAMINATION TYPE: XR chest 2V DATE OF EXAM: 03/21/2018 COMPARISON: Chest x-ray from one week ago and older studies. HISTORY: History of lymphoma, new pneumonia progress study TECHNIQUE: Frontal and lateral views of the chest are obtained. FINDINGS: There is persistent right suprahilar scarlike opacity in left upper lung linear scarring w ith patchy right basilar opacity. No significant change from most recent chest x-ray. New findings f rom February 14 noted. No new pleural effusion or pneumothorax is present. The cardiac silhouette size r emains within normal limits. The osseous structures are intact. IMPRESSION: Persistent multifocal opacities could reflect residual acute infiltrate, areas of develop ing scar and/or atelectasis are not excluded.
== END ==
LOC: RADXRMAIN 16:05
PROVIDERS: ATTEND Internal Medicine
DX: R91.8 Other nonspecific abnormal finding of lung field (principal)
CPT/HCPCS: 71046

== ENCOUNTER → 2018-04-10 | Outpatient (CLI) | payer OTHER ==
--- NOTE | 2018-04-11 09:23 | MM ---
Reason for exam: screening (asymptomatic). Last mammogram was performed 2 years and 6 months ago. History: Patient is postmenopausal, has history of other cancer at age 53, and is nulliparous. Retro-pectoral saline implants in both breasts, 1999. Physical Findings: A clinical breast exam by your physician is recommended on an annual basis and results should be correlated with mammographic findings. MG Screening Mammo Implant/CAD Bilateral CC, MLO, and ID view(s) were taken. Prior study comparison: October 23, 2015, bilateral MG screening mammo implant/CAD. March 25, 2010, bilateral diagnostic digital mammog. The breast tissue is heterogeneously dense. This may lower the sensitivity of mammography. Benign calcifications bilaterally. No significant changes when compared with prior studies. ASSESSMENT: Benign, BI-RAD 2 RECOMMENDATION: Routine screening mammogram of both breasts in 1 year.
== END | disposition home or self-care (01) ==
LOC: RADMAMWWP 12:42
PROVIDERS: ATTEND Family Medicine
DX: Z12.31 Encounter for screening mammogram for malignant neoplasm of breast (principal)
CPT/HCPCS: 77067

== ENCOUNTER → 2018-07-21 | Outpatient (CLI) | payer OTHER ==
[2018-07-21 13:15] LABS: HCT 44.9 % (34.0-46.0); MCH 28.7 pg (25.0-35.0); MCHC 31.1 g/dL (31.0-37.0); MCV 92.2 fL (80.0-100.0); Mean Platelet Volume 6.5; Platelet Count 352 k/uL (150-450); RBC 4.87 m/uL (3.80-5.40); RDW 14.9 % (11.5-15.5); WBC 15.3 k/uL (3.8-10.6)
[2018-07-21 13:30] LABS: ALT 35 U/L (9-52); AST 37 U/L (14-36); Albumin 3.9 g/dL (3.5-5.0); Albumin/Globulin Ratio 1.3; Alkaline Phosphatase 39 U/L (38-126); Anion Gap 6 mmol/L; Blood Urea Nitrogen 14 mg/dL (7-17); Calcium 9.7 mg/dL (8.4-10.2); Carbon Dioxide 30 mmol/L (22-30); Chloride 105 mmol/L (98-107); Globulin 3.1 g/dL; Glucose 94 mg/dL (74-99); Magnesium 2.1 mg/dL (1.6-2.3); Phosphorus 3.6 mg/dL (2.5-4.5); Sodium 141 mmol/L (137-145); Total Bilirubin 0.4 mg/dL (0.2-1.3)
[2018-07-21 13:37] LABS: Eosinophils # (M) 0.15 k/uL (0-0.7); Lymphocytes # (M) 7.04 k/uL (1.0-4.8); Monocytes # (M) 0.92 k/uL (0-1.0); Neutrophils # (M) 7.19 k/uL (1.3-7.7); Neutrophils % (M) 47 %; Nucleated Red Blood Cells 0 /100 WBC (0-0); Total Cells Counted 100
== END | disposition home or self-care (01) ==
LOC: LABWHC1 12:29
PROVIDERS: ATTEND Nurse Practitioner
DX: C86.5 Angioimmunoblastic T-cell lymphoma (principal); Z94.81 Bone marrow transplant status
CPT/HCPCS: 36415; 80053; 83615; 83735; 84100; 85025

== ENCOUNTER → 2018-09-25 | Outpatient (CLI) | payer OTHER ==
[2018-09-25 13:02] LABS: Basophils # (A) 0.1 k/uL (0-0.2); Basophils % (A) 1 %; Eosinophils # (A) 0.3 k/uL (0-0.7); Eosinophils % (A) 2 %; HCT 43.8 % (34.0-46.0); HGB 13.8 gm/dL (11.4-16.0); Lymphocytes # (A) 7.1 k/uL (1.0-4.8); Lymphocytes % (A) 42 %; MCH 28.1 pg (25.0-35.0); MCHC 31.6 g/dL (31.0-37.0); MCV 88.8 fL (80.0-100.0); Mean Platelet Volume 7.7; Monocytes # (A) 1.1 k/uL (0-1.0); Monocytes % (A) 7 %; Neutrophils # (A) 7.6 k/uL (1.3-7.7); Neutrophils % (A) 46 %; Platelet Count 329 k/uL (150-450); RBC 4.93 m/uL (3.80-5.40); RDW 14.7 % (11.5-15.5); WBC 16.7 k/uL (3.8-10.6)
[2018-09-25 13:07] LABS: ALT 37 U/L (9-52); AST 34 U/L (14-36); Albumin 4.2 g/dL (3.5-5.0); Albumin/Globulin Ratio 1.4; Alkaline Phosphatase 47 U/L (38-126); Anion Gap 7 mmol/L; Blood Urea Nitrogen 19 mg/dL (7-17); Carbon Dioxide 28 mmol/L (22-30); Chloride 103 mmol/L (98-107); Globulin 3.1 g/dL; Glucose 93 mg/dL (74-99); LDH 635 U/L (313-618); Magnesium 1.8 mg/dL (1.6-2.3); Sodium 138 mmol/L (137-145); Total Bilirubin 0.5 mg/dL (0.2-1.3); Total Protein 7.3 g/dL (6.3-8.2)
== END ==
LOC: LABWHC1 11:57
PROVIDERS: ATTEND Nurse Practitioner
DX: C86.5 Angioimmunoblastic T-cell lymphoma (principal); Z94.81 Bone marrow transplant status
CPT/HCPCS: 36415; 80053; 82784; 83615; 83735; 84100; 85025

== ENCOUNTER → 2018-10-27 | Outpatient (CLI) | payer OTHER ==
[2018-10-27 15:40] LABS: Basophils # (A) 0.1 k/uL (0-0.2); Basophils % (A) 1 %; Eosinophils # (A) 0.3 k/uL (0-0.7); Eosinophils % (A) 2 %; HCT 44.9 % (34.0-46.0); HGB 14.4 gm/dL (11.4-16.0); Lymphocytes # (A) 6.4 k/uL (1.0-4.8); Lymphocytes % (A) 44 %; MCH 29.4 pg (25.0-35.0); MCHC 32.1 g/dL (31.0-37.0); MCV 91.5 fL (80.0-100.0); Mean Platelet Volume 7.1; Monocytes # (A) 1.3 k/uL (0-1.0); Monocytes % (A) 9 %; Neutrophils % (A) 41 %; Platelet Count 345 k/uL (150-450); RBC 4.91 m/uL (3.80-5.40); RDW 14.5 % (11.5-15.5); WBC 14.7 k/uL (3.8-10.6)
[2018-10-27 15:48] LABS: ALT 51 U/L (9-52); AST 38 U/L (14-36); Albumin 4.2 g/dL (3.5-5.0); Albumin/Globulin Ratio 1.4; Alkaline Phosphatase 59 U/L (38-126); Anion Gap 8 mmol/L; Blood Urea Nitrogen 21 mg/dL (7-17); Carbon Dioxide 29 mmol/L (22-30); Chloride 103 mmol/L (98-107); Glucose 83 mg/dL (74-99); LDH 561 U/L (313-618); Magnesium 1.9 mg/dL (1.6-2.3); Phosphorus 3.8 mg/dL (2.5-4.5); Potassium 4.2 mmol/L (3.5-5.1); Sodium 140 mmol/L (137-145); Total Bilirubin 0.3 mg/dL (0.2-1.3); Total Protein 7.2 g/dL (6.3-8.2)
== END | disposition home or self-care (01) ==
LOC: LABWHC1 13:48
PROVIDERS: ATTEND Nurse Practitioner
DX: C86.5 Angioimmunoblastic T-cell lymphoma (principal); Z94.81 Bone marrow transplant status
CPT/HCPCS: 36415; 80053; 83615; 83735; 84100; 85025

== ENCOUNTER → 2019-07-17 | Outpatient (CLI) | payer OTHER ==
--- NOTE | 2019-07-18 17:03 | BD ---
EXAMINATION TYPE: Axial Bone Density DATE OF EXAM: 07/17/2019 COMPARISON: NONE CLINICAL HISTORY: Height: 5 FT 1 IN Weight: 154 FRAX RISK QUESTIONS: Alcohol (3 or more units per day): NO Family History (Parent hip fracture): NO Glucocorticoids (More than 3mos): YES (Ex: prednisone, prednisolone, methylprednisolone, dexamethasone, and hydrocortisone). History of Fracture in Adulthood: YES Secondary Osteoporosis: 1. Type 1 Diabetes: NO 2. Hyperthyroidism: NO 3. Menopause before 45: NO 4. Malnutrition: NO 5. Chronic liver disease: NO Rheumatoid Arthritis: NO Current Tobacco Use: NO RISK FACTORS HISTORY OF: Active: YES Postmenopausal woman: AGE 51 Poor Health: YES MEDICATIONS: Prednisone or other steroids: YES How Lon Thyroid Medications: Which medication: How Long: Osteoporosis Medications: YES Which medication: FOSAMAX How Long: ONE YEAR Additional Medications: FOSAMAX, XANAX, VIT C, ZITHROMAX, SYMBICORT, SINGULAIR, OMEPRAZOLE, PREDNISON E, REQUIP Additional History: LYMPHOMA BONE MARROW TRANSPLANT X 2 2013 CHEMO EXAM MEASUREMENTS: Bone mineral densitometry was performed using the [place] [employer] (GLCF) System. Bone mineral density as measured about the Lumbar spine is: ----- L1-L4(G/cm2): 1.179 T Score Values are as follows: ----- L2: -0.7 ----- L3: -0.2 ----- L4: 0.9 ----- L1-L4: 0.0 Bone mineral density has: INCREASED 16.5 % since study of: 2017 Bone mineral density about the R hip (g/cm2): 0.727 Bone mineral density about the L hip (g/cm2): 0.918 T Score values are as follows: -----R Neck: -2.2 -----L Neck: -0.9 -----R Total: -1.7 -----L Total: -1.2 Bone mineral density has: INCREASED 10.7 % since study of: 2018 IMPRESSION: Osteopenia (T Score between -2.5 and -1). There is slightly increased risk of fracture and the patient may be considered for treatment. Re-Screen 2-5 years. NOTE: T-SCORE=SD OF THE YOUNG ADULT MEAN.
== END | disposition home or self-care (01) ==
LOC: RADBDWWP 14:42
PROVIDERS: ATTEND Family Medicine
DX: M85.80 Other specified disorders of bone density and structure, unspecified site (principal); M25.552 Pain in left hip
CPT/HCPCS: 77080

== ENCOUNTER → 2021-10-05 | Outpatient (CLI) | payer OTHER ==
--- NOTE | 2021-10-06 15:05 | MM ---
Reason for exam: screening (asymptomatic). Last mammogram was performed 3 years and 6 months ago. History: Patient is postmenopausal, has history of other cancer at age 53, and is nulliparous. Retro-pectoral saline implants in both breasts, 2000. Physical Findings: A clinical breast exam by your physician is recommended on an annual basis and results should be correlated with mammographic findings. MG Screening Mammo Implant/CAD Bilateral CC, MLO, and ID view(s) were taken. Prior study comparison: April 10, 2018, bilateral MG screening mammo implant/CAD. October 23, 2015, bilateral MG screening mammo implant/CAD. The breast tissue is heterogeneously dense. This may lower the sensitivity of mammography. Bilateral breast prothesis. No significant changes when compared with prior studies. ASSESSMENT: Benign, BI-RAD 2 RECOMMENDATION: Routine screening mammogram of both breasts in 1 year.
== END | disposition home or self-care (01) ==
LOC: RADMAMWWP 16:05
PROVIDERS: ATTEND Family Medicine
DX: Z12.31 Encounter for screening mammogram for malignant neoplasm of breast (principal); Z78.0 Asymptomatic menopausal state
CPT/HCPCS: 77067

== ENCOUNTER → 2021-12-22 | Outpatient (CLI) | payer OTHER ==
--- NOTE | 2021-12-22 22:29 | CTL ---
EXAMINATION TYPE: CT Low Dose Lung DATE OF EXAM ORDERED: 12/22/2021 HISTORY: Tobacco use. Lung cancer screening CT DLP: 85.[address] CTDI: 2.5 mGy Automated exposure control for dose reduction was used. SCREENING VISIT: Baseline COMPARISON: CT dated 03/07/2018 TECHNIQUE: Low dose computed tomography scan was performed through the chest at 1 mm thick sections a nd reconstructed images in multiple planes at 1 mm and [address] DIAGNOSTIC QUALITY: Satisfactory FINDINGS: LUNG NODULES: None. LUNGS: COPD: Severity: Mild Fibrosis: Severity: Moderate to markedly Lymph nodes: No pathologically enlarged lymph nodes. Other findings: Diffuse bilateral pulmonary infiltrative fibrotic changes and articulations demonstra ting irregular distribution likely representing sequelae of previous infection including atypical inf ection, nonspecific. No obvious traction bronchiectasis, honeycombing or cystic changes. RIGHT PLEURAL SPACE: Effusion: None Calcification: None Thickening: None Pneumothorax: None LEFT PLEURAL SPACE: Effusion: None Calcification: None Thickening: None Pneumothorax: None HEART: Heart Size: Normal Coronary Calcification: Mild Pericardial Effusion: None OTHER FINDINGS: Upper abdomen: Small spleen with faint splenic calcifications. Suspected left renal cyst, suboptimall y assessed. Bony thorax: No aggressive bone lesion. Supraclavicular region: None Other: Scattered arterial atherosclerotic calcifications. Bilateral breast prosthesis. IMPRESSION: No definite discrete lung nodule identified. Pulmonary fibrotic changes as detailed above , please correlate with pulmonary function tests. Please note that a subtle infiltrative lung lesion cannot be excluded in the background of the above described fibrotic changes. Other incidental findin gs as described above. CT LUNG RAD AND CT CHEST RECOMMENDATION: Lung-Rad 2 Benign Appearance or Behavior: Continue annual sc reening with LDCT in 12 months. S Modifier (other clinically significant findings): As above.
== END | disposition home or self-care (01) ==
LOC: RADCTMAIN 13:45
PROVIDERS: ATTEND Family Medicine
DX: Z12.2 Encounter for screening for malignant neoplasm of respiratory organs (principal); R91.8 Other nonspecific abnormal finding of lung field; Z87.891 Personal history of nicotine dependence
CPT/HCPCS: 71271

== ENCOUNTER → 2023-01-13 | Outpatient (CLI) | payer OTHER | END | disposition home or self-care (01) | LOC: LABPAT 13:09 | PROVIDERS: ATTEND Orthopaedic Surgery | DX: Z01.812 Encounter for preprocedural laboratory examination (principal); M16.12 Unilateral primary osteoarthritis, left hip; Z22.322 Carrier or suspected carrier of Methicillin resistant Staphylococcus aureus | CPT/HCPCS: 86850; 86900; 86901 ==

== ENCOUNTER 2023-01-17 05:53 | Day surgery (SDC) | payer OTHER ==
[~2023-01-17 05:53] MED LIST changes: +ACETAMINOPHEN TAB 500 MG TAB PO PRN; -LACTATED RINGERS 1,000 ML IV SCH; +MELOXICAM 7.5 MG TAB PO PRN; +TRANEXAMIC 1,000 MG/100ML-NACL 1,000 MG in SALINE 1 100ML.BAG IVPB PRN
[2023-01-17] MEDS ORDERED: SCOPOLAMINE 1 MG/72 HR PATCH TRANSDERM ONE (06:20)
[2023-01-17] MEDS ORDERED: LACTATED RINGERS 1,000 ML IV SCH (06:20)
[2023-01-17] MEDS ORDERED: MIDAZOLAM 2 MG/2 ML VIAL IV PRN (06:20)
[2023-01-17] MEDS ORDERED: DEXAMETHASONE SOD PHOSPHATE 4 MG/ML 1 ML VIAL IV ONE (06:20)
[2023-01-17] MEDS ORDERED: ONDANSETRON 4 MG/2 ML VIAL IVP ONE ×2 (06:20→09:55)
[2023-01-17] MEDS ORDERED: LACTATED RINGERS 1,000 ML IV ONE ×4 (06:49→10:55)
[2023-01-17] MEDS ORDERED: MIDAZOLAM 2 MG/2 ML VIAL IVP ONE (07:22)
[2023-01-17] MEDS ORDERED: ROCURONIUM 10 MG/ML (5 ML VIAL) IV ONE (07:29)
[2023-01-17] MEDS ORDERED: TRANEXAMIC 1,000 MG/100ML-NACL PREMIX BAG ONE (07:29)
[2023-01-17] MEDS ORDERED: GLYCOPYRROLATE 0.2 MG/ML 2 ML VIAL ONE (07:29)
[2023-01-17] MEDS ORDERED: SUCCINYLCHOLINE CHLORIDE 200 MG/10 ML VIAL IV ONE (07:29)
[2023-01-17] MEDS ORDERED: MIDAZOLAM 2 MG/2 ML VIAL ONE (07:29)
[2023-01-17] MEDS ORDERED: fentaNYL (PF) 50 MCG/ML 2 ML AMP ONE (07:29)
[2023-01-17] MEDS ORDERED: ROPIVACAINE 5 MG/ML 30 ML VIAL ONE (07:29)
[2023-01-17] MEDS ORDERED: DEXAMETHASONE SOD PHOSPHATE 4 MG/ML 1 ML VIAL ONE (07:29)
[2023-01-17] MEDS ORDERED: SODIUM CHLORIDE 0.9% (PF) 10 ML VIAL ONE (07:29)
[2023-01-17] MEDS ORDERED: PROPOFOL 10 MG/ML 20 ML VIAL IV ONE (07:29)
[2023-01-17] MEDS ORDERED: hydrALAZINE HCL 20 MG/ML 1 ML VIAL ONE (07:29)
[2023-01-17] MEDS ORDERED: NEOSTIGMINE 1 MG/ML 10 ML VIAL ONE (07:29)
[2023-01-17] MEDS ORDERED: LIDOCAINE 2% INJ 20 MG/ML (2 ML VIAL) ONE (07:29)
--- NOTE | 2023-01-17 07:33 | HP ---
HISTORY AND PHYSICAL DATE OF SURGERY: 01/17/2023. HISTORY OF PRESENT ILLNESS: Fe Manley is a 62-year-old patient seen with symptomatic right hip osteoarthritis. After having treatment options discussed, she elected to proceed with direct anterior right total hip arthroplasty. Consent regarding the procedure was obtained. Medical clearance was provided by Dr. Johns. PAST MEDICAL HISTORY: Noncontributory. PAST SURGICAL HISTORY: Left total hip arthroplasty. DAILY MEDICATIONS: Gabapentin, tramadol. ALLERGIES: None. SOCIAL HISTORY: She denies current tobacco use. PHYSICAL EVALUATION OF THE RIGHT HIP: She has diffuse tenderness about the hip girdle. Limited range of motion, severe pain. Positive hip impingement sign. Straight-leg raise negative. Distal neurovascular exam is intact. RADIOGRAPHS: Radiographs of the right hip reveals severe osteoarthritic changes. IMPRESSION: Right hip osteoarthritis. PLAN: Direct anterior right total hip arthroplasty. MMODL / IJN: [id number] /
--- NOTE | 2023-01-17 08:01 | P.ANPRN ---
Procedure Note - Anesthesia - Nerve Block Performed Right Ramone Single Time Out Performed: Yes Date of Procedure: 01/17/23 Procedure Start Time: Procedure Stop Time: Location of Patient: PreOp Indication: Acute Post-Operative Pain, Requested by Surgeon Specifically requested for management of pain by DrLeon: Alvin Keller Sedation Type: Sedate with meaningful contact maintained Preparation: Sterile Prep Position: Supine Needle Types: Pajunk Needle Gauge: 21 Ultrasound used to visualize needle placement: Yes Ultrasound used to observe medication spread: Yes Injectate: 0.5% Ropivacaine (see comment for volume) (20 ml +10 ml Ns + 4 mg Dexamethasone) Blood Aspirated: No Pain Paresthesia on Injection Noted: No Resistance on Injection: Normal Image Stored and Saved: Yes Events: Uneventful and Well Tolerated
[2023-01-17] MEDS ORDERED: ceFAZolin 1,000 MG in SODIUM CHLORIDE 0.9% 1,000 ML IRRIGATION ONE (08:04)
[2023-01-17] MEDS ORDERED: HYDROcodone/APAP 7.5-325MG 1 EACH TAB PO PRN (09:10)
[2023-01-17] MEDS ORDERED: ONDANSETRON 4 MG/2 ML VIAL IVP PRN (09:10)
[2023-01-17] MEDS ORDERED: HYDROmorphone 1 MG/ML 1 ML SYRINGE IVP PRN (09:10)
[2023-01-17] MEDS ORDERED: HYDROcodone/APAP 5-325MG 1 EACH TAB PO PRN (09:10)
[2023-01-17] MEDS ORDERED: HYDROmorphone 0.5 MG/0.5 ML SYRINGE IVP PRN ×2 (09:10)
[2023-01-17] MEDS ORDERED: NALOXONE 0.4 MG/ML 1 ML VIAL IV PRN (09:10)
--- NOTE | 2023-01-17 09:10 | P.OP ---
Date of Procedure: 01/17/23 Preoperative Diagnosis: Right hip osteoarthritis Postoperative Diagnosis: Right hip osteoarthritis Procedure(s) Performed: Direct anterior right total hip arthroplasty Implants: 1. Depuy pinnacle 135 short neck size 11 with collar press-fit femoral stem 2. Depuy pinnacle 52 mm press-fit acetabular shell 3. Jakob pinnacle neutral polyethylene acetabular liner 36 mm ID 52 mm OD 4. Biolox delta ceramic head +1.5 36 mm Anesthesia: GETA, regional (erector spinae block) Surgeon: Alvin Keller Work From Home #1: Tyrone Billingsley Estimated Blood Loss (ml): 85 Pathology: none sent Condition: stable Disposition: PACU Indications for Procedure: 62-year-old patient seen with symptomatic right hip osteoarthritis. After having treatment options discussed, she elected to proceed with total hip arthroplasty. Operative Findings: See description of procedure Description of Procedure: The patient was taken to the operative suite. Patient underwent a general anesthetic by the department of anesthesia. Patient was then transferred to the [place] table. Patient was given preoperative IV antibiotics and TXA. Both lower extremities were placed in standard leg spars. The hip was then prepped and draped in the normal sterile orthopedic fashion. A standard anterior incision was made beginning 3 cm lateral and 1 cm distal to the ASIS extending 10 cm. Dissection was then carried down through the subcutaneous soft tissues down to the fascia overlying the tensor fascia marlo. An incision was now made through the fascia. Careful dissection was taken down exposing the tensor fascia marlo muscle. A Cobra retractor was now placed along the medial femoral neck and a second one along the lateral femoral neck. The venous circumflex vessels were now identified, cauterized and clipped. We identified the anterior hip capsule. An incision was made through the hip capsule along the lateral border. I performed a partial anterior capsulectomy. Retractors were now placed around the femoral neck itself. A femoral neck cut was now made with a sagittal saw. It was completed with an osteotome at the lateral neck area. The femoral head was now removed without difficulty. The extremity was now rotated to 60 of external rotation. It was locked in position. Residual labrum was now debrided out. Serial reaming was performed of the acetabulum while [place] chapa sisted holding an anterior retractor for exposure. Once we reached the appropriate size and a trial was position and fit nicely. The appropriate size was now chosen opened and made available. It was introduced into the acetabulum without difficulty. The C-arm/fluoroscopy was now brought into the operative field. We made sure we had a true AP pelvic view. We now under direct C-arm/fluoroscopy introduced into the acetabular component with appropriate version and inclination. I held the cup in appropriate position well [place] NAVARRETE used a mallet to seat the acetabular component. I noted the component now to be well seated and stable. Acetabular cup introduce her was removed. The C-arm was pulled back. An appropriate liner was introduced and clicked into position. It was felt to be stable. At this point retractors were removed. The extremity was now placed into 140 external rotation with no traction. The leg was now dropped to the ground and adducted. Appropriate retractors were now positioned along the proximal femur. We also placed our femoral look into position. Additional capsular releasing was performed to gain access to the proximal femur. We now used a box osteotome. A canal finder was now utilized. Serial broaching was now performed with the assistance of [place] NAVARRETE tapping the broaches down with a mallet while held the broach in appropriate rotation and position. This was done until we reached the appropriate size with good overall rotational stability. Appropriate calcar planing was performed. A trial head/neck was placed into position. The hip was now reduced. The C- arm/fluoroscopy was brought back into the operative field. I took an AP pelvis was demonstrated adequate leg length alignment. The trial components appear adequately sized and positioned. The C-arm/fluoroscopy was pulled back. Retractors were repositioned and the hip was dislocated. The leg was again taken down to the ground and adducted. Appropriate retractors were repositioned as well as the femoral hook. All trial components were removed. The femoral implant was opened along with the femoral head. The femoral implant was introduced on the appropriate handle into our pre-broached area. I held the component position well [place] NAVARERTE used a mallet to seat the femoral component. The femoral component was now noted to be well seated and stable.. The femoral head was introduced with good positioning and fixation noted. Retractors were now removed. The hip was now reduced. There appeared be good positioning of the hip confirmed on intraoperative fluoroscopy. Spot films were obtained to document this. A second gram of TXA was given. The deep and superficial soft tissues were infiltrated with local analgesic. Bipolar cautery had been utilized intermittently through the procedure for hemostasis. The wound was irrigated copiously with pulse lavage mechanical irrigation. The fascia was repaired with Vicryl suture. The subcutaneous soft tissues were repaired in layers with Vicryl suture. The skin was approximated with pernio/Dermabond. Sterile dressings were applied. Patient was then awakened, transferred to a bed and taken to recovery in stable condition. [place] NAVARRETE assisted with the complex procedure.
[2023-01-17] MEDS: HYDROmorphone 0.5 MG/0.5 ML SYRINGE IVP PRN ×4 (09:30→11:07)
[2023-01-17 09:49] VITALS: TEMP 98.1
--- NOTE | 2023-01-17 11:38 | FL ---
Intraoperative/procedural fluoroscopic services were provided. Total fluoroscopy time is 9 seconds wi th a total of 2 submitted images to PACS. Please see the operative/procedural note for further detail s. DAP: 0.3639 mGym2
[2023-01-17 11:55] VITALS: RESP 20
[2023-01-17] MEDS ORDERED: droPERidol 5 MG/2 ML VIAL IVP ONE (13:08)
[2023-01-17 15:03] VITALS: BP 102/70; PULSE 86
== END 2023-01-17 16:02 | disposition home health service (06) ==
LOC: OR 05:53
PROVIDERS: ATTEND Orthopaedic Surgery
DX: M16.11 Unilateral primary osteoarthritis, right hip (principal); G89.18 Other acute postprocedural pain; F41.9 Anxiety disorder, unspecified; Z86.718 Personal history of other venous thrombosis and embolism; Z86.010 Personal history of colon polyps; Z85.72 Personal history of non-Hodgkin lymphomas; Z79.1 Long term (current) use of non-steroidal anti-inflammatories (NSAID); Z92.21 Personal history of antineoplastic chemotherapy; Z94.81 Bone marrow transplant status; Z79.899 Other long term (current) drug therapy
CPT/HCPCS: 97530; 97161; 86900; 86901; 86850; 73501; 27130; 64447; J2250; J1100; J0690 ×2; J2405; J1170; J1790